=== PATIENT | male | born 1990 | race Hispanic/Latino ===

== ENCOUNTER 2018-08-04 12:04 | Inpatient (IN) | payer SELFPAY ==
[~2018-08-04] VITALS: Ht 172.7 cm; Wt 81.4 kg
[2018-08-04 12:38] LABS: BASOPHILS % (AUTO) 0.7 % (0.0-5.0); EOSINOPHILS % (AUTO) 1.3 % (0.0-8.0); HEMATOCRIT 47.5 % (42-54); MEAN CORPUSCULAR VOLUME 91.4 fL (79-99); MONOCYTES % (AUTO) 5.6 % (3.0-13.0); NEUTROPHILS % (AUTO) 72.4 % (40.0-77.0); PLATELET COUNT (AUTO) 194 K/uL (130-400); RED CELL DISTRIBUTION WIDTH 14.2 % (11.0-15.5); WHITE BLOOD COUNT (AUTO) 9.9 K/uL (4.8-10.8)
[2018-08-04] MEDS ORDERED: ONDANSETRON HCL 4 MG/2 ML VIAL ONE (12:38)
[2018-08-04] MEDS ORDERED: KETOROLAC TROMETHAMINE 15MG/ML ONE (12:38)
[2018-08-04] MEDS ORDERED: SODIUM CHLORIDE 0.9% 1000ML 1,000 ML IV ONE ×2 (12:38→15:59)
[2018-08-04 12:39] LABS: APPEARANCE,URINE Cloudy (CLEAR); BILIRUBIN,URINE Small (NEGATIVE); COLOR,URINE Orange (YELLOW); GLUCOSE, URINE (UA) >=1000 mg/dL (NEGATIVE); KETONES,URINE >=80 mg/dL (NEGATIVE); LEUKOCYTE ESTERASE ,URINE Small (NEGATIVE); NITRATE,URINE Negative (NEGATIVE); OCCULT BLOOD,URINE Trace (NEGATIVE); PROTEIN,URINE POS 2+ (NEGATIVE)
[2018-08-04 12:47] LABS: AMPHET/METH SCREEN,URINE NEGATIVE (NEGATIVE); BARBITURATE SCREEN, URINE NEGATIVE (NEGATIVE); BENZODIAZEPINES SCREEN,URINE NEGATIVE (NEGATIVE); CANNABINOID SCREEN,URINE NEGATIVE (NEGATIVE); COCAINE SCREEN,URINE NEGATIVE (NEGATIVE); OPIATE SCREEN,URINE NEGATIVE (NEGATIVE); PHENCYCLIDINE SCREEN,URINE NEGATIVE (NEGATIVE)
[2018-08-04 12:47] LABS: CREATININE 0.6 mg/dL (0.5-1.5); POTASSIUM 3.9 mmol/L (3.5-5.1)
[2018-08-04 12:50] LABS: BACTERIA,URINE Few /HPF (None Seen)
[2018-08-04 12:51] LABS: MUCUS,URINE Moderate LPF (None Seen)
[2018-08-04 12:55] LABS: ALBUMIN 3.5 g/dL (3.5-5.0); TOTAL PROTEIN, SERUM 8.2 g/dL (6.0-8.3)
[2018-08-04] MEDS ORDERED: IOHEXOL-350 75 ML VIAL IV ONE (14:12)
[2018-08-04] MEDS ORDERED: MORPHINE SULFATE 4 MG/1ML SYG ONE ×2 (14:17→20:20)
[2018-08-04] MEDS ORDERED: ACETAMINOPHEN 325 MG TAB PO PRN (15:30)
[2018-08-04] MEDS ORDERED: MORPHINE SULFATE 4 MG/1ML SYG IV PRN (15:30)
[2018-08-04] MEDS ORDERED: ONDANSETRON HCL 4 MG/2 ML VIAL IV PRN (15:30)
[2018-08-04] MEDS ORDERED: MORPHINE SULFATE 2 MG/ML 1ML SYG IV PRN (15:30)
[2018-08-04 16:28] LABS: CREATININE 0.5 mg/dL (0.5-1.5); POTASSIUM 3.5 mmol/L (3.5-5.1)
[2018-08-04 16:34] LABS: AMYLASE 31 U/L (25-115); CHOLESTEROL 194 mg/dL (<200); HDL CHOLESTEROL 33 mg/dL (29-71); LDL DIRECT 73 mg/dL (0-99); TRIGLYCERIDES 511 mg/dL (30-200)
[2018-08-04] MEDS ORDERED: FENOFIBRATE NANOCRYSTALLIZED 145 MG TAB PO ONE (17:00)
[2018-08-04] MEDS ORDERED: ENOXAPARIN SODIUM 40 MG/0.4 ML SYRINGE SQ ONE (18:06)
[2018-08-04 23:50] VITALS: BP 122/69
[2018-08-05] MEDS ORDERED: METF500S7 PO (00:01)
[2018-08-05] MEDS ORDERED: LISI10TA7 PO (00:01)
[2018-08-05] MEDS: SODIUM CHLORIDE 0.9% 1000ML 1,000 ML IV SCH ×3 (01:35→16:56)
[2018-08-05] MEDS: FAMOTIDINE/PF 20 MG/2 ML VIAL IV SCH ×3 (02:06→20:40)
[2018-08-05 04:18] VITALS: BP 111/67
[2018-08-05 04:58] LABS: HEMATOCRIT 36.1 % (42-54); MEAN CORPUSCULAR HGB CONC 35.3 g/dL (32.0-36.0); MEAN CORPUSCULAR VOLUME 90.7 fL (79-99); PLATELET COUNT (AUTO) 144 K/uL (130-400); RED BLOOD CELL COUNT(AUTO) 3.98 MIL/uL (4.50-6.20); RED CELL DISTRIBUTION WIDTH 14.2 % (11.0-15.5); WHITE BLOOD COUNT (AUTO) 7.3 K/uL (4.8-10.8)
[2018-08-05 05:15] LABS: CREATININE 0.4 mg/dL (0.5-1.5); POTASSIUM 3.4 mmol/L (3.5-5.1)
[2018-08-05 08:00] VITALS: BP 110/69
[2018-08-05] MEDS: FENOFIBRATE NANOCRYSTALLIZED 145 MG TAB PO SCH (09:02)
[2018-08-05] MEDS: ENOXAPARIN SODIUM 40 MG/0.4 ML SYRINGE SQ SCH (09:04)
[2018-08-05 11:00] VITALS: BP 140/87
[2018-08-05 16:00] VITALS: BP 129/80
[2018-08-05 19:37] VITALS: BP 115/65
[2018-08-05 23:22] VITALS: BP 115/65
[2018-08-06] MEDS: SODIUM CHLORIDE 0.9% 1000ML 1,000 ML IV SCH (00:07)
[2018-08-06 03:30] VITALS: BP 112/71
[2018-08-06 04:53] LABS: HEMATOCRIT 36.3 % (42-54); MEAN CORPUSCULAR VOLUME 91.7 fL (79-99); PLATELET COUNT (AUTO) 184 K/uL (130-400); RED BLOOD CELL COUNT(AUTO) 3.96 MIL/uL (4.50-6.20); RED CELL DISTRIBUTION WIDTH 13.7 % (11.0-15.5); WHITE BLOOD COUNT (AUTO) 6.5 K/uL (4.8-10.8)
[2018-08-06 05:10] LABS: CREATININE 0.5 mg/dL (0.5-1.5)
[2018-08-06] MEDS ORDERED: ATORVASTATIN CALCIUM 40 MG TABLET PO SCH (09:00)
[2018-08-06] MEDS: ENOXAPARIN SODIUM 40 MG/0.4 ML SYRINGE SQ SCH (09:00)
[2018-08-06] MEDS ORDERED: LEVOFLOXACIN 500 MG TABLET PO SCH (09:00)
[2018-08-06] MEDS: FENOFIBRATE NANOCRYSTALLIZED 145 MG TAB PO SCH (09:58)
[2018-08-06] MEDS: FAMOTIDINE/PF 20 MG/2 ML VIAL IV SCH (09:58)
[2018-08-06 11:00] VITALS: BP 122/77
[2018-08-06] MEDS ORDERED: LEVO500T2 PO (11:10)
== END 2018-08-06 13:30 | disposition home or self-care (01) | DRG 439 ==
LOC: EDH 12:04 → EDHIP 12:05 → 3CH 21:40
PROVIDERS: ADMIT Internal Medicine; ATTEND Internal Medicine
DX: K85.20 Alcohol induced acute pancreatitis without necrosis or infection (principal); E87.1 Hypo-osmolality and hyponatremia; N39.0 Urinary tract infection, site not specified; E78.1 Pure hyperglyceridemia; E87.6 Hypokalemia; K26.9 Duodenal ulcer, unspecified as acute or chronic, without hemorrhage or perforation
CPT/HCPCS: 36415; 71045; 74177; 76705; 80048; 80053; 80061; 80305; 81001; 82150; 82948; 83690; 84478; 84484; 85025; 85027; 86677; 93005; J1650; J1885; J2270; J2405; J3490; J7030; Q9967

== ENCOUNTER 2019-07-09 12:15 | Inpatient (IN) | payer OTHER ==
[~2019-07-09] VITALS: Ht 157.5 cm; Wt 79.4 kg
[~2019-07-09 12:15] MED LIST: LEVO500T2 PO; LISI10TA7 PO; METF500S7 PO
[2019-07-09] MEDS ORDERED: ONDANSETRON HCL 4 MG/2 ML VIAL ONE ×2 (12:37→18:15)
[2019-07-09] MEDS ORDERED: KETOROLAC TROMETHAMINE 30MG/ML ONE (12:38)
[2019-07-09] MEDS ORDERED: SODIUM CHLORIDE 0.9% 1000ML 1,000 ML IV ONE ×2 (12:38→16:18)
[2019-07-09 12:43] LABS: EOSINOPHILS % (AUTO) 3.9 % (0.0-8.0); LYMPHOCYTES % (AUTO) 22.6 % (21.0-51.0); MONOCYTES % (AUTO) 5.1 % (3.0-13.0); NEUTROPHILS % (AUTO) 67.4 % (40.0-77.0); PLATELET COUNT (AUTO) 206 K/uL (130-400); RED BLOOD CELL COUNT(AUTO) 5.03 MIL/uL (4.50-6.20); RED CELL DISTRIBUTION WIDTH 13.8 % (11.0-15.5); WHITE BLOOD COUNT (AUTO) 11.1 K/uL (4.8-10.8)
[2019-07-09 12:58] LABS: POTASSIUM 3.3 mmol/L (3.5-5.1)
[2019-07-09] MEDS ORDERED: MORPHINE SULFATE 4 MG/1ML SYG ONE (13:08)
[2019-07-09 13:25] LABS: HEMATOCRIT 40.5 % (42-54)
[2019-07-09 13:26] LABS: MEAN CORPUSCULAR HEMOGLOBIN 32.7 pg (27.0-33.0); MEAN CORPUSCULAR HGB CONC 34.7 g/dL (32.0-36.0); MEAN CORPUSCULAR VOLUME 94.3 fL (79-99)
[2019-07-09] MEDS ORDERED: IOHEXOL-350 75 ML VIAL IV ONE (13:39)
[2019-07-09 13:50] LABS: CREATININE 0.3 mg/dL (0.5-1.5)
[2019-07-09 13:52] LABS: ALBUMIN 3.7 g/dL (3.5-5.0); BILIRUBIN,TOTAL 1.3 mg/dL (0.2-1.0); TOTAL PROTEIN, SERUM 5.4 g/dL (6.0-8.3)
[2019-07-09 14:33] LABS: ABG OXYGEN SATURATION 87.8 % (95.0-99.0); BASE EXCESS,VENOUS BLOOD GAS -2.8 (-2.0-3.0); HCO3,VENOUS BLOOD GAS 23.2 (21.0-28.0); PCO2,VENOUS BLOOD GAS 45 (35-48); PH,VENOUS BLOOD GAS 7.332 (7.350-7.450)
[2019-07-09] MEDS ORDERED: INSULIN HUMULIN R 100 UNIT/ML 3ML ONE ×2 (15:21→20:35)
[2019-07-09] MEDS ORDERED: SODIUM CHLORIDE 0.9% 1000ML 2,000 ML IV ONE ×2 (15:22→19:58)
[2019-07-09 15:30] LABS: APPEARANCE,URINE Cloudy (CLEAR); BILIRUBIN,URINE Negative (NEGATIVE); COLOR,URINE Yellow (YELLOW); GLUCOSE, URINE (UA) >=1000 mg/dL (NEGATIVE); KETONES,URINE >=80 mg/dL (NEGATIVE); LEUKOCYTE ESTERASE ,URINE Negative (NEGATIVE); NITRATE,URINE Negative (NEGATIVE); OCCULT BLOOD,URINE Small (NEGATIVE); PROTEIN,URINE POS 2+ mg/dL (NEGATIVE); UROBILINOGEN,URINE 0.2 mg/dL (0.2-1.0)
[2019-07-09 15:36] LABS: ABG OXYGEN SATURATION 60.6 % (95.0-99.0); HCO3,VENOUS BLOOD GAS 18.8 (21.0-28.0); PCO2,VENOUS BLOOD GAS 39 (35-48); PH,VENOUS BLOOD GAS 7.302 (7.350-7.450)
[2019-07-09 15:44] LABS: BACTERIA,URINE Few /HPF (None Seen); MUCUS,URINE Few LPF (None Seen); SQUAMOUS EPITHELIAL CELL,UR Moderate /HPF (0-2)
[2019-07-09] MEDS: SODIUM CHLORIDE 0.9% 1000ML 1,000 ML IV SCH ×2 (16:11→21:14)
[2019-07-09] MEDS ORDERED: HYDRALAZINE HCL 20 MG/ML VIAL IV PRN (16:15)
[2019-07-09] MEDS ORDERED: CEFTRIAXONE SODIUM 1 GM IV SCH (16:15)
[2019-07-09] MEDS ORDERED: MORPHINE SULFATE 2 MG/ML 1ML SYG ONE ×2 (16:18→21:09)
[2019-07-09] MEDS ORDERED: FENOFIBRATE NANOCRYSTALLIZED 145 MG TAB PO SCH (17:30)
[2019-07-09] MEDS ORDERED: ATORVASTATIN CALCIUM 40 MG TABLET PO SCH (17:30)
[2019-07-09] MEDS: INSULIN HUMULIN R 100 UNIT/ML 3ML SQ SCH (18:00)
[2019-07-09] MEDS ORDERED: HYDROMORPHONE 1 MG/1 ML AMP ONE ×2 (18:15→23:03)
[2019-07-09] MEDS ORDERED: CEFTRIAXONE SODIUM 1 GM ONE (20:30)
[2019-07-09] MEDS ORDERED: FAMOTIDINE/PF 20 MG/2 ML VIAL IV ONE (20:31)
[2019-07-09] MEDS ORDERED: HYDRALAZINE HCL 20 MG/ML VIAL ONE (20:33)
[2019-07-09] MEDS: ATORVASTATIN CALCIUM 40 MG TABLET PO SCH (21:00)
[2019-07-09] MEDS: FAMOTIDINE/PF 20 MG/2 ML VIAL IV SCH (21:00)
[2019-07-09] MEDS ORDERED: SODIUM CHLORIDE 0.9% 50 ML IV ONE (23:04)
[2019-07-10] VITALS (10 sets, daily range): BP systolic 139–164; BP diastolic 79–102
[2019-07-10] MEDS: SODIUM CHLORIDE 0.9% 1000ML 1,000 ML IV SCH ×3 (02:14→12:14)
[2019-07-10] MEDS ORDERED: ACETAMINOPHEN 325 MG TAB ONE (03:23)
[2019-07-10] MEDS ORDERED: ONDANSETRON HCL 4 MG/2 ML VIAL ONE ×2 (03:30→11:04)
[2019-07-10] MEDS ORDERED: HYDROMORPHONE 1 MG/1 ML AMP ONE ×3 (03:31→13:24)
[2019-07-10 04:18] LABS: BASOPHILS % (AUTO) 0.8 % (0.0-5.0); EOSINOPHILS % (AUTO) 0.2 % (0.0-8.0); LYMPHOCYTES % (AUTO) 7.8 % (21.0-51.0); MEAN CORPUSCULAR HEMOGLOBIN 39.5 pg (27.0-33.0); MEAN CORPUSCULAR HGB CONC 41.5 g/dL (32.0-36.0); MEAN CORPUSCULAR VOLUME 95.2 fL (79-99); MONOCYTES % (AUTO) 5.1 % (3.0-13.0); NEUTROPHILS % (AUTO) 86.1 % (40.0-77.0); NUCLEATED RED BLOOD CELLS 0.1 % (0.0-0.19); PLATELET COUNT (AUTO) 145 K/uL (130-400); RED BLOOD CELL COUNT(AUTO) 4.62 MIL/uL (4.50-6.20); RED CELL DISTRIBUTION WIDTH 14.1 % (11.0-15.5)
[2019-07-10 04:38] LABS: POTASSIUM 3.3 mmol/L (3.5-5.1)
[2019-07-10] MEDS ORDERED: SODIUM CHLORIDE 0.9% 1000ML 1,000 ML IV ONE ×4 (04:50→11:09)
[2019-07-10] MEDS ORDERED: LIDOCAINE HCL 1% 20 ML VIAL ONE (05:36)
[2019-07-10] MEDS ORDERED: POTASSIUM CHLORIDE 20MEQ/100ML 100 ML IV ONE (05:36)
[2019-07-10] MEDS ORDERED: INSULIN HUMULIN R 100 UNIT/ML 3ML ONE ×2 (05:37→10:25)
[2019-07-10] MEDS ORDERED: MORPHINE SULFATE 2 MG/ML 1ML SYG ONE (05:43)
[2019-07-10] MEDS: INSULIN HUMULIN R 100 UNIT/ML 3ML SQ SCH ×3 (06:00→12:00)
[2019-07-10 06:15] LABS: CREATININE 0.4 mg/dL (0.5-1.5)
[2019-07-10] MEDS ORDERED: ACETAMINOPHEN 650 MG SUPPOSITORY RC ONE (08:42)
[2019-07-10] MEDS ORDERED: MEROPENEM 500 MG VIAL ONE (08:42)
[2019-07-10] MEDS ORDERED: SODIUM CHLORIDE 0.9% 100 ML IV ONE ×3 (08:43→13:24)
[2019-07-10] MEDS: ENOXAPARIN SODIUM 30 MG/0.3 ML SQ SCH (09:00)
[2019-07-10] MEDS: FAMOTIDINE/PF 20 MG/2 ML VIAL IV SCH ×2 (09:00→20:06)
[2019-07-10] MEDS: FENOFIBRATE NANOCRYSTALLIZED 145 MG TAB PO SCH (09:00)
[2019-07-10] MEDS ORDERED: DEXTROSE 5 % AND 0.9 % NACL 1,000 ML IV ONE ×2 (10:27→15:25)
[2019-07-10] MEDS ORDERED: MAGNESIUM 2GM PREMIX 50ML 50 ML IV ONE (14:28)
[2019-07-10] MEDS ORDERED: METOPROLOL TARTRATE 1 MG/ML 5ML VIAL IV ONE (14:51)
[2019-07-10] MEDS ORDERED: METOPROLOL TARTRATE 1 MG/ML 5ML VIAL IV PRN (15:15)
[2019-07-10] MEDS ORDERED: LACTATED RINGERS 1000ML 1,000 ML IV ONE ×2 (17:27→23:02)
[2019-07-10] MEDS ORDERED: DEXTROSE 5 % AND 0.9 % NACL 1,000 ML IV SCH (17:45)
[2019-07-10] MEDS: LACTATED RINGERS 1000ML 1,000 ML IV SCH (17:46)
[2019-07-10] MEDS ORDERED: PRAV10TA39 PO (17:53)
[2019-07-10] MEDS: MEROPENEM 500 MG VIAL IVP SCH (18:07)
[2019-07-10 18:31] LABS: BASOPHILS % (AUTO) 0.7 % (0.0-5.0); EOSINOPHILS % (AUTO) 0.1 % (0.0-8.0); HEMATOCRIT 42.6 % (42-54); LYMPHOCYTES % (AUTO) 9.6 % (21.0-51.0); MEAN CORPUSCULAR HGB CONC 36.1 g/dL (32.0-36.0); MONOCYTES % (AUTO) 4.5 % (3.0-13.0); NEUTROPHILS % (AUTO) 85.1 % (40.0-77.0); NUCLEATED RED BLOOD CELLS 0.1 % (0.0-0.19); PLATELET COUNT (AUTO) 122 K/uL (130-400); RED BLOOD CELL COUNT(AUTO) 4.53 MIL/uL (4.50-6.20); RED CELL DISTRIBUTION WIDTH 14.2 % (11.0-15.5); WHITE BLOOD COUNT (AUTO) 11.1 K/uL (4.8-10.8)
[2019-07-10 18:43] LABS: CREATININE 0.6 mg/dL (0.5-1.5); POTASSIUM 3.3 mmol/L (3.5-5.1)
[2019-07-10] MEDS ORDERED: DEXTROSE 50%-WATER 50 ML DISP.SYRIN IV PRN (18:45)
[2019-07-10] MEDS ORDERED: GLUCAGON 1MG KIT 1 MG ML IM PRN (18:45)
[2019-07-10 18:57] LABS: MAGNESIUM 1.5 mg/dL (1.80-2.40); PHOSPHORUS 1.1 mg/dL (2.5-4.9); THYROID STIMULATING HORMONE 0.21 uIU/mL (0.36-3.74)
[2019-07-10] MEDS: POTASSIUM CHLORIDE 20MEQ/100ML 100 ML IV PRN ×2 (19:43→21:08)
[2019-07-10] MEDS: LIDOCAINE HCL-MPF 1% 2ML VIAL IV PRN ×3 (19:47→21:10)
[2019-07-10] MEDS: DEXTROSE 5 % AND 0.9 % NACL 1,000 ML IV SCH (20:00)
--- NOTE | 2019-07-10 20:00 | NUR ---
Received call from ,notified of recent lab results with Mag pending result. and blood sugar result.He ordered to keep blood sugar above 120 and check blood sugar every 30 minutes X3 and then q1 hr.Keep pt on D5NS @200 ml/hr. check labs in am .Notified about pt HR in the 150-140's bpm he said its okay for now.No new order received.
[2019-07-10] MEDS: ATORVASTATIN CALCIUM 40 MG TABLET PO SCH (20:07)
[2019-07-10] MEDS: MAGNESIUM 2GM PREMIX 50ML 50 ML IV PRN (20:54)
--- NOTE | 2019-07-10 21:00 | NUR ---
Pt. is drowsy but arousable, he c/o nausea and vomited once prn Zofran IV was given as per BERONICA Barragan.Pt. remained ST 140's with occasionbal PVC on the monitor noted.Potassium and Magnesium ongoing coverage.Will continue to monitor pt.
[2019-07-10] MEDS: ONDANSETRON HCL 4 MG/2 ML VIAL IVP PRN (21:11)
[2019-07-10] MEDS: INSULIN REGULAR, HUMAN 3ML 100 UNIT in SODIUM CHLORIDE 0.9% 99 ML IV PRN ×2 (22:25)
[2019-07-10] MEDS ORDERED: LACTATED RINGERS 1000ML IV ONE (23:15)
--- NOTE | 2019-07-10 23:30 | NUR ---
Received call from ,updated with pt condition and V/S and blood sugar result,received order to increase D5NS to 250 ml/hr and give LR 1 liter to infuse for 2 hrs.Will carry out order and continue to monitor pt.
[2019-07-11] VITALS (35 sets, daily range): BP systolic 122–153; BP diastolic 59–93
[2019-07-11] MEDS: DEXTROSE 5 % AND 0.9 % NACL 1,000 ML IV SCH ×8 (00:02→22:36)
[2019-07-11] MEDS: MEROPENEM 500 MG VIAL IVP SCH ×3 (01:50→18:20)
[2019-07-11] MEDS: ONDANSETRON HCL 4 MG/2 ML VIAL IVP PRN ×3 (04:48→16:16)
[2019-07-11] MEDS: HYDROMORPHONE 1 MG/1 ML AMP IVP PRN ×2 (04:52→20:25)
--- NOTE | 2019-07-11 05:20 | NUR ---
Received call from ,updated with pt V/S ,pt alert and oriented,c/o abdominal pain and was nauseated was given prn dilaudid and Zofran.Pt had episode of fever 101 and this morning pt temperature is 99.4.Received order to give LR bolus to infuse X 2 hours.Notified that Kphosphate pending to be given because there is no available at this time.
[2019-07-11] MEDS ORDERED: LACTATED RINGERS 1000ML IV ONE (05:30)
--- NOTE | 2019-07-11 06:00 | NUR ---
Placed call to pharmacy X2 regarding Kphosphate.
[2019-07-11 07:11] LABS: BASOPHILS % (AUTO) 0.9 % (0.0-5.0); EOSINOPHILS % (AUTO) 0.1 % (0.0-8.0); HEMATOCRIT 38.2 % (42-54); LYMPHOCYTES % (AUTO) 13.7 % (21.0-51.0); MEAN CORPUSCULAR HEMOGLOBIN 33.4 pg (27.0-33.0); MEAN CORPUSCULAR VOLUME 92.9 fL (79-99); MONOCYTES % (AUTO) 4.2 % (3.0-13.0); NEUTROPHILS % (AUTO) 81.1 % (40.0-77.0); PLATELET COUNT (AUTO) 101 K/uL (130-400); RED BLOOD CELL COUNT(AUTO) 4.11 MIL/uL (4.50-6.20); WHITE BLOOD COUNT (AUTO) 9.6 K/uL (4.8-10.8)
--- NOTE | 2019-07-11 07:12 | NUR ---
Bedside report given to incoming NOD uysing SBAR all questions answered.Am labs pending to be drawn.
[2019-07-11 07:27] LABS: ALBUMIN 1.8 g/dL (3.5-5.0); CREATININE 0.5 mg/dL (0.5-1.5); MAGNESIUM 1.9 mg/dL (1.80-2.40); PHOSPHORUS 0.9 mg/dL (2.5-4.9); TOTAL PROTEIN, SERUM 5.4 g/dL (6.0-8.3)
[2019-07-11 07:42] LABS: PLATELET MORPHOLOGY COMMENT SLIGHTLY DECREASED
[2019-07-11] MEDS: POTASSIUM PHOS 15 mMOL+NS250ML 250 ML IV PRN (07:54)
[2019-07-11] MEDS: FAMOTIDINE/PF 20 MG/2 ML VIAL IV SCH ×2 (08:04→20:24)
[2019-07-11] MEDS: FENOFIBRATE NANOCRYSTALLIZED 145 MG TAB PO SCH (08:04)
[2019-07-11] MEDS: ENOXAPARIN SODIUM 30 MG/0.3 ML SQ SCH (08:04)
[2019-07-11] MEDS: POTASSIUM CHLORIDE 20MEQ/100ML 100 ML IV PRN ×7 (08:24→22:35)
[2019-07-11] MEDS: LIDOCAINE HCL-MPF 1% 2ML VIAL IV PRN (09:13)
[2019-07-11] MEDS: INSULIN REGULAR, HUMAN 3ML 100 UNIT in SODIUM CHLORIDE 0.9% 99 ML IV PRN ×2 (11:36)
[2019-07-11] MEDS: MORPHINE SULFATE 2 MG/ML 1ML SYG IV PRN (12:18)
[2019-07-11 15:05] LABS: CREATININE 0.6 mg/dL (0.5-1.5); MAGNESIUM 1.9 mg/dL (1.80-2.40); PHOSPHORUS 3.6 mg/dL (2.5-4.9); POTASSIUM 3.2 mmol/L (3.5-5.1)
[2019-07-11] MEDS: HYDROMORPHONE HCL 0.5 MG/0.5 ML ML IVP PRN (16:16)
--- NOTE | 2019-07-11 16:52 | NUR ---
cm note met with patient and states resides athome with mother, is independent with ambulation and adls . sees dr isaias frazier as op. dc plan is back to same setting at ma. provided pt with list of clinics in the area if needed for followup and Rx assist coupons. [facility]. Addendum: 07/11/19 at 1655 by THIERRY BARRIENTOS CM Amended: Links added.
[2019-07-11] MEDS: ATORVASTATIN CALCIUM 40 MG TABLET PO SCH (20:24)
[2019-07-12] VITALS (27 sets, daily range): BP systolic 123–151; BP diastolic 64–101
[2019-07-12] MEDS: MEROPENEM 500 MG VIAL IVP SCH ×3 (01:16→17:20)
[2019-07-12] MEDS ORDERED: INSULIN HUMULIN R 100 UNIT/ML 3ML ONE (02:44)
[2019-07-12] MEDS: DEXTROSE 5 % AND 0.9 % NACL 1,000 ML IV SCH ×6 (02:48→23:00)
[2019-07-12] MEDS: HYDROMORPHONE 1 MG/1 ML AMP IVP PRN (05:35)
[2019-07-12 05:50] LABS: BASOPHILS % (AUTO) 0.8 % (0.0-5.0); EOSINOPHILS % (AUTO) 0.6 % (0.0-8.0); HEMATOCRIT 36.7 % (42-54); LYMPHOCYTES % (AUTO) 17.8 % (21.0-51.0); MEAN CORPUSCULAR HEMOGLOBIN 33.7 pg (27.0-33.0); MEAN CORPUSCULAR HGB CONC 35.6 g/dL (32.0-36.0); MEAN CORPUSCULAR VOLUME 94.8 fL (79-99); MONOCYTES % (AUTO) 4.4 % (3.0-13.0); NEUTROPHILS % (AUTO) 76.4 % (40.0-77.0); PLATELET COUNT (AUTO) 95 K/uL (130-400); RED BLOOD CELL COUNT(AUTO) 3.87 MIL/uL (4.50-6.20); RED CELL DISTRIBUTION WIDTH 14.4 % (11.0-15.5)
[2019-07-12 06:10] LABS: ALBUMIN 1.7 g/dL (3.5-5.0); BILIRUBIN,DIRECT 0.1 mg/dL (0.0-0.3); BILIRUBIN,TOTAL 0.8 mg/dL (0.2-1.0); CREATININE 0.4 mg/dL (0.5-1.5); MAGNESIUM 1.8 mg/dL (1.80-2.40); PHOSPHORUS 1.5 mg/dL (2.5-4.9); POTASSIUM 3.1 mmol/L (3.5-5.1); TOTAL PROTEIN, SERUM 5.7 g/dL (6.0-8.3)
[2019-07-12] MEDS: POTASSIUM CHLORIDE 20MEQ/100ML 100 ML IV PRN ×4 (06:39→13:22)
[2019-07-12] MEDS: POTASSIUM PHOS 15 mMOL+NS250ML 250 ML IV PRN (06:50)
[2019-07-12] MEDS ORDERED: REGADENOSON 0.4 MG/5 ML PF SYG IVP SCH (08:15)
[2019-07-12] MEDS: FENOFIBRATE NANOCRYSTALLIZED 145 MG TAB PO SCH (09:00)
[2019-07-12] MEDS: FAMOTIDINE/PF 20 MG/2 ML VIAL IV SCH ×2 (09:00→21:20)
[2019-07-12] MEDS: ENOXAPARIN SODIUM 30 MG/0.3 ML SQ SCH (09:03)
[2019-07-12] MEDS: INSULIN REGULAR, HUMAN 3ML 100 UNIT in SODIUM CHLORIDE 0.9% 99 ML IV PRN ×4 (10:35→22:56)
[2019-07-12] MEDS: ONDANSETRON HCL 4 MG/2 ML VIAL IVP PRN (11:28)
[2019-07-12] MEDS: HYDROMORPHONE HCL 0.5 MG/0.5 ML ML IVP PRN ×2 (12:15→16:50)
[2019-07-12] MEDS: SODIUM CHLORIDE 23.4% 30ML VL 154 MEQ in DEXTROSE 10%-WATER 961.5 ML IV PRN ×2 (12:19→22:56)
[2019-07-12 12:33] LABS: CREATININE 0.5 mg/dL (0.5-1.5); MAGNESIUM 1.7 mg/dL (1.80-2.40)
[2019-07-12 12:47] LABS: POTASSIUM 2.9 mmol/L (3.5-5.1)
[2019-07-12] MEDS: MAGNESIUM 2GM PREMIX 50ML 50 ML IV PRN (13:27)
[2019-07-12 14:18] LABS: INR 0.96 (0.85-1.15); PARTIAL THROMBOPLASTIN TIME 35.7 SEC (26.3-35.5); PROTHROMBIN TIME 10.1 SEC (9.6-11.6)
[2019-07-12] MEDS: MORPHINE SULFATE 2 MG/ML 1ML SYG IV PRN ×3 (14:42→21:20)
[2019-07-12 18:20] LABS: CREATININE 0.4 mg/dL (0.5-1.5); PHOSPHORUS 4.4 mg/dL (2.5-4.9); POTASSIUM 3.8 mmol/L (3.5-5.1)
--- NOTE | 2019-07-12 19:30 | NUR ---
ASSESSMENT PT RESTING IN BED, FAMILY AT BEDSIDE. SEE E.BRENNA FOR ANALGESICS GIVEN. CALLBELL REVIEWED AND WITHIN REACH, MONITOR PARAMETERS REVIEWED AND ADJUSTED. WHITE BOARD UP-DATED. ASSESSMENT COMPLETED, SEE FLOW SHEET.
[2019-07-12] MEDS: ATORVASTATIN CALCIUM 40 MG TABLET PO SCH (21:21)
--- NOTE | 2019-07-12 23:00 | NUR ---
ASSESSMENT PT RESTING IN BED, FAMILY AT BEDSIDE. SEE E.BRENNA FOR ANALGESICS GIVEN. CALLBELL WITHIN REACH. WHITE BOARD UP-DATED. ASSESSMENT COMPLETED, SEE FLOW SHEET.
[2019-07-13] VITALS (24 sets, daily range): BP systolic 128–150; BP diastolic 76–96
[2019-07-13 00:56] LABS: CREATININE 0.4 mg/dL (0.5-1.5); MAGNESIUM 1.7 mg/dL (1.80-2.40); POTASSIUM 3.3 mmol/L (3.5-5.1)
[2019-07-13] MEDS: ONDANSETRON HCL 4 MG/2 ML VIAL IVP PRN (01:17)
[2019-07-13] MEDS: MEROPENEM 500 MG VIAL IVP SCH ×3 (01:18→18:33)
[2019-07-13] MEDS: DEXTROSE 5 % AND 0.9 % NACL 1,000 ML IV SCH ×5 (01:28→18:34)
[2019-07-13] MEDS: MAGNESIUM 2GM PREMIX 50ML 50 ML IV PRN ×2 (01:28→16:31)
[2019-07-13] MEDS: POTASSIUM CHLORIDE 20MEQ/100ML 100 ML IV PRN ×5 (01:29→11:30)
[2019-07-13] MEDS: HYDROMORPHONE 1 MG/1 ML AMP IVP PRN ×5 (02:09→22:06)
[2019-07-13 06:26] LABS: BASOPHILS % (AUTO) 0.5 % (0.0-5.0); EOSINOPHILS % (AUTO) 2.9 % (0.0-8.0); HEMATOCRIT 37.9 % (42-54); LYMPHOCYTES % (AUTO) 19.7 % (21.0-51.0); MEAN CORPUSCULAR HEMOGLOBIN 32.6 pg (27.0-33.0); MEAN CORPUSCULAR HGB CONC 34.4 g/dL (32.0-36.0); MEAN CORPUSCULAR VOLUME 94.7 fL (79-99); MONOCYTES % (AUTO) 9.2 % (3.0-13.0); NEUTROPHILS % (AUTO) 67.7 % (40.0-77.0); NUCLEATED RED BLOOD CELLS 0.1 % (0.0-0.19); PLATELET COUNT (AUTO) 139 K/uL (130-400); RED CELL DISTRIBUTION WIDTH 14.5 % (11.0-15.5)
[2019-07-13 06:46] LABS: CREATININE 0.5 mg/dL (0.5-1.5); MAGNESIUM 2.1 mg/dL (1.80-2.40); POTASSIUM 3.7 mmol/L (3.5-5.1)
[2019-07-13] MEDS: FENOFIBRATE NANOCRYSTALLIZED 145 MG TAB PO SCH (08:10)
[2019-07-13] MEDS: FAMOTIDINE/PF 20 MG/2 ML VIAL IV SCH ×2 (08:10→20:48)
[2019-07-13] MEDS: ENOXAPARIN SODIUM 30 MG/0.3 ML SQ SCH (08:12)
[2019-07-13 12:34] LABS: CREATININE 0.4 mg/dL (0.5-1.5); MAGNESIUM 1.9 mg/dL (1.80-2.40)
[2019-07-13 18:58] LABS: CREATININE 0.4 mg/dL (0.5-1.5); MAGNESIUM 2.1 mg/dL (1.80-2.40); POTASSIUM 3.8 mmol/L (3.5-5.1)
--- NOTE | 2019-07-13 19:30 | NUR ---
ASSESSMENT PT RESTING IN BED, FAMILY AT BEDSIDE. CALLBELL REVIEWED AND WITHIN REACH, MONITOR PARAMETERS REVIEWED AND ADJUSTED. WHITE BOARD UP-DATED. ASSESSMENT COMPLETED, SEE FLOW SHEET.
[2019-07-13] MEDS: ATORVASTATIN CALCIUM 40 MG TABLET PO SCH (20:49)
[2019-07-14] VITALS (23 sets, daily range): BP systolic 118–149; BP diastolic 64–97
[2019-07-14 00:41] LABS: CREATININE 0.4 mg/dL (0.5-1.5); MAGNESIUM 1.8 mg/dL (1.80-2.40); POTASSIUM 3.4 mmol/L (3.5-5.1)
[2019-07-14] MEDS: POTASSIUM CHLORIDE 20MEQ/100ML 100 ML IV PRN ×3 (01:38→03:58)
[2019-07-14] MEDS: DEXTROSE 5 % AND 0.9 % NACL 1,000 ML IV SCH ×3 (01:39→10:39)
[2019-07-14] MEDS: MEROPENEM 500 MG VIAL IVP SCH ×3 (01:39→17:44)
[2019-07-14] MEDS: MAGNESIUM 2GM PREMIX 50ML 50 ML IV PRN (01:39)
[2019-07-14] MEDS: SODIUM CHLORIDE 23.4% 30ML VL 154 MEQ in DEXTROSE 10%-WATER 961.5 ML IV PRN (01:39)
[2019-07-14] MEDS: INSULIN REGULAR, HUMAN 3ML 100 UNIT in SODIUM CHLORIDE 0.9% 99 ML IV PRN ×2 (01:41)
[2019-07-14] MEDS: HYDROMORPHONE 1 MG/1 ML AMP IVP PRN ×4 (03:00→15:19)
--- NOTE | 2019-07-14 03:08 | NUR ---
ASSESSMENT PT RESTING IN BED, FAMILY AT BEDSIDE. CALLBELL WITHIN REACH. WHITE BOARD UP-DATED. ASSESSMENT COMPLETED, SEE FLOW SHEET.
[2019-07-14 06:43] LABS: CREATININE 0.5 mg/dL (0.5-1.5); MAGNESIUM 2.1 mg/dL (1.80-2.40)
[2019-07-14] MEDS: FENOFIBRATE NANOCRYSTALLIZED 145 MG TAB PO SCH (07:55)
[2019-07-14] MEDS: ENOXAPARIN SODIUM 30 MG/0.3 ML SQ SCH (07:55)
[2019-07-14] MEDS: FAMOTIDINE/PF 20 MG/2 ML VIAL IV SCH ×2 (07:55→21:24)
--- NOTE | 2019-07-14 11:20 | NUR ---
DR BRONSON AT BEDSIDE, NEW ORDERS GIVEN, TO DISCONTINUE ALL IVF, INCLUDING INSULIN DRIP
[2019-07-14] MEDS ORDERED: INSULIN GLARGINE 100 UNITS/ML 10 ML VIAL SQ SCH (11:30)
[2019-07-14] MEDS: INSULIN HUMULIN R 100 UNIT/ML 3ML SQ SCH ×3 (14:00→21:27)
--- NOTE | 2019-07-14 14:10 | NUR ---
ADMINISTERED 2 MG OF CATHFLOW ACTIVASE TO BLUE PORT PICC, IT WAS NOTED WITH RESISTANCE, NO BLOOD RETURN NOTED
[2019-07-14] MEDS: MORPHINE SULFATE 2 MG/ML 1ML SYG IV PRN ×2 (14:17→18:39)
[2019-07-14] MEDS ORDERED: ALTEPLASE 2 MG/VIAL IV SCH (14:30)
--- NOTE | 2019-07-14 15:00 | NUR ---
PROVIDED SITE CARE TO PICC LINE, UNDER STERILE TECHNIQUE.
--- NOTE | 2019-07-14 16:00 | NUR ---
ASPIRATED 2.2 ML OF BLOOD FROM BLUE PORT AND DISCARDED, PICC LINE, NO RESISTANCE NOTED, NOTED TO BE PATENT AT THIS TIME, AFTER CATHFLOW ACTIVASE GIVEN.
[2019-07-14] MEDS ORDERED: HYDROMORPHONE 1 MG/1 ML AMP IVP PRN (20:45)
[2019-07-14] MEDS: ATORVASTATIN CALCIUM 40 MG TABLET PO SCH (21:00)
[2019-07-14] MEDS: HYDROMORPHONE HCL 0.5 MG/0.5 ML ML IVP PRN (21:25)
[2019-07-15] VITALS (15 sets, daily range): BP systolic 107–137; BP diastolic 58–90
[2019-07-15] MEDS: INSULIN HUMULIN R 100 UNIT/ML 3ML SQ SCH ×6 (02:00→22:24)
[2019-07-15] MEDS: MEROPENEM 500 MG VIAL IVP SCH ×3 (03:08→18:40)
[2019-07-15] MEDS: HYDROMORPHONE HCL 0.5 MG/0.5 ML ML IVP PRN ×2 (03:52→18:55)
[2019-07-15 03:58] LABS: HEMATOCRIT 41.4 % (42-54); MEAN CORPUSCULAR HEMOGLOBIN 33.1 pg (27.0-33.0); MEAN CORPUSCULAR VOLUME 94.6 fL (79-99); NUCLEATED RED BLOOD CELLS 0.1 % (0.0-0.19); PLATELET COUNT (AUTO) 154 K/uL (130-400); RED BLOOD CELL COUNT(AUTO) 4.38 MIL/uL (4.50-6.20); RED CELL DISTRIBUTION WIDTH 13.9 % (11.0-15.5); WHITE BLOOD COUNT (AUTO) 6.6 K/uL (4.8-10.8)
[2019-07-15 04:12] LABS: CREATININE 0.5 mg/dL (0.5-1.5); MAGNESIUM 1.7 mg/dL (1.80-2.40); PHOSPHORUS 5.9 mg/dL (2.5-4.9); POTASSIUM 4.4 mmol/L (3.5-5.1)
[2019-07-15] MEDS: MAGNESIUM 2GM PREMIX 50ML 50 ML IV PRN (06:07)
[2019-07-15] MEDS: INSULIN GLARGINE 100 UNITS/ML 10 ML VIAL SQ SCH (07:24)
[2019-07-15] MEDS: FENOFIBRATE NANOCRYSTALLIZED 145 MG TAB PO SCH (08:06)
[2019-07-15] MEDS: ENOXAPARIN SODIUM 30 MG/0.3 ML SQ SCH (08:07)
[2019-07-15] MEDS: FAMOTIDINE/PF 20 MG/2 ML VIAL IV SCH ×2 (08:07→22:19)
[2019-07-15] MEDS: ONDANSETRON HCL 4 MG/2 ML VIAL IVP PRN (08:51)
[2019-07-15] MEDS: SODIUM CHLORIDE 0.9% 1000ML 1,000 ML IV SCH (11:11)
--- NOTE | 2019-07-15 13:34 | NUR ---
RD NOTIFICATION DX: DKA, ELEVATED LIPID PANEL. DIET: NPO X 7 DAYS. LBM: 07/13. PO INTAKE 0% FOR 7 DAYS NOW. PT STATED HE IS HUNGRY AND NEEDS FOOD. RD STATED WE WILL ADVANCE DIET SLOWLY STARTING WITH CLEAR LIQUIDS. RD PROVIDED DM AND HEART HEALTHY MNT. PT ASKED QUESTIONS, RD ANSWERED AND PT VERBALIZED UNDERSTANDING. MATERIALS PROVIDED. RECOMMENDATIONS/ INTERVENTIONS: ADVANCE DIET TOLERATED OFFER ENSURE CLEAR TID RD PROVIDED DIET AND NUTRITION EDUCATION, MATERIALS PROVIDED RD WILL FOLLOW UP NEEDED Addendum: 07/15/19 at [address] Amended: Links added.
--- NOTE | 2019-07-15 13:37 | NUR ---
DIET EDUCATION RD PROVIDED DIABETIC AND HEART HEALTHY MEDICAL NUTRITION THERAPY. MATERIALS PROVIDED. Addendum: 07/15/19 at [address] Amended: Links added.
[2019-07-15] MEDS: METOPROLOL TARTRATE 1 MG/ML 5ML VIAL IV SCH ×2 (14:28→18:45)
--- NOTE | 2019-07-15 14:40 | NUR ---
REPORT GIVEN TO UMA GOODSON. TRANSFERRED TO 3RD FLOOR, ROOM 308, VIA BED
--- NOTE | 2019-07-15 15:00 | NUR ---
RECIEVED REPORT FROM EMANUEL AT 1435, PATIENT ALERT AND ORIENTATED X3 ON VIA NC INFUSING AT 2 LITERS , DENIES PAIN AT THIS TIME BLOOD SUGAR EVERY 4 HOURS , LUNGS CLEAR , B/P 127/67 P 98 R 20 TRANSFERS TO BED WILL CONTINUE TO MONITOR
[2019-07-15] MEDS: ATORVASTATIN CALCIUM 40 MG TABLET PO SCH (22:19)
[2019-07-16] VITALS: BP 120/76
[2019-07-16] MEDS: MEROPENEM 500 MG VIAL IVP SCH ×3 (01:25→17:41)
[2019-07-16] MEDS: INSULIN HUMULIN R 100 UNIT/ML 3ML SQ SCH ×6 (02:00→21:21)
[2019-07-16] MEDS: METOPROLOL TARTRATE 1 MG/ML 5ML VIAL IV SCH (02:27)
[2019-07-16 04:00] VITALS: BP 116/81
[2019-07-16 05:44] LABS: HEMATOCRIT 40.1 % (42-54); MEAN CORPUSCULAR HEMOGLOBIN 32.7 pg (27.0-33.0); MEAN CORPUSCULAR HGB CONC 34.8 g/dL (32.0-36.0); MEAN CORPUSCULAR VOLUME 94.2 fL (79-99); NUCLEATED RED BLOOD CELLS 0.1 % (0.0-0.19); PLATELET COUNT (AUTO) 173 K/uL (130-400); RED BLOOD CELL COUNT(AUTO) 4.26 MIL/uL (4.50-6.20); RED CELL DISTRIBUTION WIDTH 13.5 % (11.0-15.5)
[2019-07-16 06:00] LABS: CREATININE 0.4 mg/dL (0.5-1.5); CRP QUANTITATIVE 123.3 mg/L (0.00-9.0); MAGNESIUM 1.8 mg/dL (1.80-2.40); PHOSPHORUS 3.7 mg/dL (2.5-4.9)
[2019-07-16 06:09] LABS: B-TYPE NATRIURETIC PEPTIDE 16 pg/mL (0-100)
[2019-07-16] MEDS: SODIUM CHLORIDE 0.9% 1000ML 1,000 ML IV SCH (06:45)
[2019-07-16 06:48] LABS: ERYTHROCYTE SEDIMENTATION RATE 101 MM/HR (0-15)
[2019-07-16] MEDS: INSULIN GLARGINE 100 UNITS/ML 10 ML VIAL SQ SCH (07:51)
[2019-07-16 08:00] VITALS: BP 128/79
[2019-07-16] MEDS ORDERED: ACETAMINOPHEN-CODEINE 300/30MG TAB PO PRN (08:45)
[2019-07-16] MEDS: FAMOTIDINE/PF 20 MG/2 ML VIAL IV SCH ×2 (10:24→21:22)
[2019-07-16] MEDS: FENOFIBRATE NANOCRYSTALLIZED 145 MG TAB PO SCH (10:25)
[2019-07-16] MEDS: ENOXAPARIN SODIUM 30 MG/0.3 ML SQ SCH (10:26)
[2019-07-16 12:00] VITALS: BP 123/84
[2019-07-16] MEDS: MORPHINE SULFATE 2 MG/ML 1ML SYG IVP PRN ×3 (12:59→22:45)
[2019-07-16] MEDS: MAGNESIUM 2GM PREMIX 50ML 50 ML IV PRN (12:59)
[2019-07-16 16:00] VITALS: BP 129/78
[2019-07-16 20:00] VITALS: BP 125/74
[2019-07-16] MEDS: METOPROLOL TARTRATE 25 MG TAB PO SCH (21:23)
[2019-07-16] MEDS: ATORVASTATIN CALCIUM 40 MG TABLET PO SCH (21:23)
[2019-07-17] VITALS: BP 114/72
[2019-07-17] MEDS: INSULIN HUMULIN R 100 UNIT/ML 3ML SQ SCH ×6 (02:00→21:59)
[2019-07-17] MEDS: MEROPENEM 500 MG VIAL IVP SCH ×2 (02:58→09:51)
[2019-07-17 04:00] VITALS: BP 110/67
[2019-07-17 05:57] LABS: HEMATOCRIT 41.5 % (42-54); MEAN CORPUSCULAR HEMOGLOBIN 32.5 pg (27.0-33.0); MEAN CORPUSCULAR HGB CONC 34.7 g/dL (32.0-36.0); MEAN CORPUSCULAR VOLUME 93.7 fL (79-99); PLATELET COUNT (AUTO) 226 K/uL (130-400); RED BLOOD CELL COUNT(AUTO) 4.43 MIL/uL (4.50-6.20); RED CELL DISTRIBUTION WIDTH 13.8 % (11.0-15.5); WHITE BLOOD COUNT (AUTO) 5.9 K/uL (4.8-10.8)
[2019-07-17 06:16] LABS: CREATININE 0.5 mg/dL (0.5-1.5)
[2019-07-17] MEDS: INSULIN GLARGINE 100 UNITS/ML 10 ML VIAL SQ SCH (06:23)
[2019-07-17] MEDS: SODIUM CHLORIDE 0.9% 1000ML 1,000 ML IV SCH (06:45)
[2019-07-17 08:00] VITALS: BP 120/71
[2019-07-17] MEDS: METOPROLOL TARTRATE 25 MG TAB PO SCH ×2 (09:02→21:25)
[2019-07-17] MEDS: FENOFIBRATE NANOCRYSTALLIZED 145 MG TAB PO SCH (09:02)
[2019-07-17] MEDS: FAMOTIDINE/PF 20 MG/2 ML VIAL IV SCH ×2 (09:03→21:25)
[2019-07-17] MEDS: ENOXAPARIN SODIUM 30 MG/0.3 ML SQ SCH (09:08)
[2019-07-17] MEDS ORDERED: SODIUM CHLORIDE 0.9% 50 ML IV ONE (09:27)
[2019-07-17] MEDS: MORPHINE SULFATE 2 MG/ML 1ML SYG IVP PRN ×2 (09:51→20:14)
--- NOTE | 2019-07-17 10:42 | NUR ---
Per Dr. Nelson, antibiotic to be discontinued.
[2019-07-17 12:00] VITALS: BP 124/70
[2019-07-17 16:00] VITALS: BP 130/82
[2019-07-17 20:00] VITALS: BP 114/72
[2019-07-17] MEDS: ATORVASTATIN CALCIUM 40 MG TABLET PO SCH (21:25)
[2019-07-18] VITALS: BP 117/70
[2019-07-18] MEDS: SODIUM CHLORIDE 0.9% 1000ML 1,000 ML IV SCH ×2 (00:11→08:53)
[2019-07-18] MEDS: INSULIN HUMULIN R 100 UNIT/ML 3ML SQ SCH ×3 (01:51→12:21)
[2019-07-18 04:00] VITALS: BP 114/66
[2019-07-18 05:07] LABS: BASOPHILS % (AUTO) 1.4 % (0.0-5.0); HEMATOCRIT 43.3 % (42-54); LYMPHOCYTES % (AUTO) 30.1 % (21.0-51.0); MEAN CORPUSCULAR HGB CONC 34.3 g/dL (32.0-36.0); MEAN CORPUSCULAR VOLUME 93.4 fL (79-99); MONOCYTES % (AUTO) 8.8 % (3.0-13.0); NEUTROPHILS % (AUTO) 55.7 % (40.0-77.0); PLATELET COUNT (AUTO) 207 K/uL (130-400); RED BLOOD CELL COUNT(AUTO) 4.64 MIL/uL (4.50-6.20); RED CELL DISTRIBUTION WIDTH 13.7 % (11.0-15.5); WHITE BLOOD COUNT (AUTO) 5.8 K/uL (4.8-10.8)
[2019-07-18 05:16] LABS: CREATININE 0.5 mg/dL (0.5-1.5); POTASSIUM 4.4 mmol/L (3.5-5.1)
[2019-07-18] MEDS: INSULIN GLARGINE 100 UNITS/ML 10 ML VIAL SQ SCH (05:45)
[2019-07-18 08:00] VITALS: BP 124/78
[2019-07-18] MEDS: FENOFIBRATE NANOCRYSTALLIZED 145 MG TAB PO SCH (10:06)
[2019-07-18] MEDS: FAMOTIDINE/PF 20 MG/2 ML VIAL IV SCH (10:07)
[2019-07-18] MEDS: METOPROLOL TARTRATE 25 MG TAB PO SCH (10:07)
[2019-07-18] MEDS: ENOXAPARIN SODIUM 30 MG/0.3 ML SQ SCH (10:08)
[2019-07-18 12:00] VITALS: BP 109/73
--- NOTE | 2019-07-18 15:28 | NUR ---
PICC line and PIV removed per verbal order by Valdez Casiano NP for discharge. Catheter intact, pressure applied to insertion site and dressed with 4x4 gauze and tegaderm. Patient notified to leave in place for 72 hours. Discharge instructions reviewed, patient acknowledges must follow up with Dr. William Bunch in 2-3 days and resume home medications. Patient informed to resume full liquid diet at home until further instructed by Dr. William Bunch. Provided education on causes, risks, symptoms and when to seek help for pancreatitis and diabetic ketoacidosis. Patient and family verbalized understanding. Patient declined wheelchair.
== END 2019-07-18 15:35 | disposition home or self-care (01) | DRG 871 ==
LOC: EDH 12:15 → EDHIP 12:16 → 2CH 07-10 17:25 → 3BH 07-15 15:06
PROVIDERS: ADMIT Internal Medicine; ATTEND Internal Medicine
PROC: 02HV33Z Insertion of Infusion Device into Superior Vena Cava, Percutaneous Approach (ICD-10-PCS; principal; 2019-07-12)
DX: A41.9 Sepsis, unspecified organism (principal); K85.90 Acute pancreatitis without necrosis or infection, unspecified; E11.10 Type 2 diabetes mellitus with ketoacidosis without coma; R65.21 Severe sepsis with septic shock; N39.0 Urinary tract infection, site not specified; E87.1 Hypo-osmolality and hyponatremia; F10.10 Alcohol abuse, uncomplicated; E78.1 Pure hyperglyceridemia; E87.8 Other disorders of electrolyte and fluid balance, not elsewhere classified; E87.6 Hypokalemia; K70.30 Alcoholic cirrhosis of liver without ascites; E66.9 Obesity, unspecified; Z68.32 Body mass index [BMI] 32.0-32.9, adult; E83.39 Other disorders of phosphorus metabolism; E83.42 Hypomagnesemia; E86.1 Hypovolemia; I10 Essential (primary) hypertension; Z91.19 Patient's noncompliance with other medical treatment and regimen; Z83.3 Family history of diabetes mellitus; Z82.49 Family history of ischemic heart disease and other diseases of the circulatory system
CPT/HCPCS: 36415; 36600; 71045; 74177; 76705; 80048; 80053; 80061; 80076; 81001; 82010; 82150; 82803; 82948; 83036; 83690; 83735; 83880; 84100; 84132; 84145; 84443; 84478; 85025; 85027; 85610; 85651; 85730; 86140; 87040; 87088; 93005; C1751; C1894; G0378; J0360; J0696; J1170; J1650; J1815; J1885; J2185; J2270; J2405; J2785; J2997; J3475; J3480; J3490; J7030; J7042; J7120; J7131; Q9967

== ENCOUNTER 2019-07-24 20:41 | Inpatient (IN) | payer OTHER ==
[~2019-07-24] VITALS: Ht 170.2 cm; Wt 79.4 kg
[~2019-07-24 20:41] MED LIST changes: -LEVO500T2 PO; +PRAV10TA39 PO
[2019-07-24] MEDS ORDERED: SODIUM CHLORIDE 0.9% 1000ML 1,000 ML IV ONE (20:50)
[2019-07-24 21:08] LABS: BASOPHILS % (AUTO) 1.4 % (0.0-5.0); EOSINOPHILS % (AUTO) 2.3 % (0.0-8.0); HEMATOCRIT 39.7 % (42-54); LYMPHOCYTES % (AUTO) 34.9 % (21.0-51.0); MEAN CORPUSCULAR HEMOGLOBIN 32.1 pg (27.0-33.0); MEAN CORPUSCULAR VOLUME 91.6 fL (79-99); MONOCYTES % (AUTO) 6.2 % (3.0-13.0); NEUTROPHILS % (AUTO) 55.2 % (40.0-77.0); PLATELET COUNT (AUTO) 256 K/uL (130-400); RED BLOOD CELL COUNT(AUTO) 4.34 MIL/uL (4.50-6.20); RED CELL DISTRIBUTION WIDTH 14.2 % (11.0-15.5)
[2019-07-24 21:16] LABS: CREATININE 0.7 mg/dL (0.5-1.5); POTASSIUM 4.2 mmol/L (3.5-5.1)
[2019-07-24] MEDS ORDERED: MORPHINE SULFATE 4 MG/1ML SYG ONE ×2 (21:19→21:46)
[2019-07-24] MEDS ORDERED: ONDANSETRON HCL 4 MG/2 ML VIAL ONE (21:19)
[2019-07-24 21:20] LABS: ALBUMIN 3.5 g/dL (3.5-5.0); BILIRUBIN,DIRECT 0.1 mg/dL (0.0-0.3); BILIRUBIN,TOTAL 0.6 mg/dL (0.2-1.0); TOTAL PROTEIN, SERUM 8.6 g/dL (6.0-8.3)
[2019-07-24] MEDS ORDERED: HYDROMORPHONE 1 MG/1 ML AMP ONE (23:21)
[2019-07-24] MEDS ORDERED: MORPHINE SULFATE 2 MG/ML 1ML SYG IV PRN (23:30)
[2019-07-24] MEDS ORDERED: MORPHINE SULFATE 4 MG/1ML SYG IV PRN (23:30)
[2019-07-24] MEDS ORDERED: HYDRALAZINE HCL 20 MG/ML VIAL IV PRN (23:30)
[2019-07-24] MEDS ORDERED: ACETAMINOPHEN 325 MG TAB PO PRN ×2 (23:30)
[2019-07-25] VITALS (7 sets, daily range): BP systolic 111–140; BP diastolic 74–95
[2019-07-25] MEDS ORDERED: METRONIDAZOLE 500 MG TABLET ONE (00:31)
[2019-07-25 00:40] LABS: APPEARANCE,URINE Clear (CLEAR); BILIRUBIN,URINE Negative (NEGATIVE); COLOR,URINE Yellow (YELLOW); GLUCOSE, URINE (UA) >=1000 mg/dL (NEGATIVE); KETONES,URINE Negative (NEGATIVE); LEUKOCYTE ESTERASE ,URINE Trace (NEGATIVE); NITRATE,URINE Negative (NEGATIVE); OCCULT BLOOD,URINE Negative (NEGATIVE); PROTEIN,URINE Negative (NEGATIVE); UROBILINOGEN,URINE 0.2 mg/dL (0.2-1.0)
[2019-07-25] MEDS ORDERED: METF-446 PO (01:03)
[2019-07-25] MEDS ORDERED: ATOR40TA71 PO (01:03)
[2019-07-25 01:10] LABS: BACTERIA,URINE Rare /HPF (None Seen); RBC,URINE None Seen /HPF (0-1)
--- NOTE | 2019-07-25 01:15 | NUR ---
admit note admit to room 404 via stretcher from er. patient awake,alert, ox3, no sob, no c/o pain at this time, teach patient npo status, plan of care and expected outcome, patient verbalizes understanding via teach back
[2019-07-25] MEDS ORDERED: PHARMACY COMMUNICATION MISC SCH (02:00)
[2019-07-25] MEDS: HYDROMORPHONE HCL 2 MG/ML VIAL IVP PRN ×5 (02:41→23:32)
[2019-07-25] MEDS: SODIUM CHLORIDE 0.9% 1000ML 1,000 ML IV SCH ×6 (02:45→18:11)
[2019-07-25 04:45] LABS: BASOPHILS % (AUTO) 0.8 % (0.0-5.0); EOSINOPHILS % (AUTO) 2.1 % (0.0-8.0); HEMATOCRIT 35.9 % (42-54); LYMPHOCYTES % (AUTO) 25.3 % (21.0-51.0); MEAN CORPUSCULAR HGB CONC 34.7 g/dL (32.0-36.0); MEAN CORPUSCULAR VOLUME 92.3 fL (79-99); MONOCYTES % (AUTO) 6.7 % (3.0-13.0); NEUTROPHILS % (AUTO) 65.1 % (40.0-77.0); PLATELET COUNT (AUTO) 211 K/uL (130-400); RED BLOOD CELL COUNT(AUTO) 3.89 MIL/uL (4.50-6.20); WHITE BLOOD COUNT (AUTO) 8.4 K/uL (4.8-10.8)
[2019-07-25 05:07] LABS: ALBUMIN 2.5 g/dL (3.5-5.0); BILIRUBIN,TOTAL 0.5 mg/dL (0.2-1.0); CREATININE 0.5 mg/dL (0.5-1.5); POTASSIUM 3.8 mmol/L (3.5-5.1); TOTAL PROTEIN, SERUM 6.1 g/dL (6.0-8.3)
[2019-07-25] MEDS: ONDANSETRON HCL 4 MG/2 ML VIAL IV PRN ×2 (05:49→13:23)
[2019-07-25] MEDS: INSULIN HUMULIN R 100 UNIT/ML 3ML SQ SCH ×3 (05:56→18:00)
[2019-07-25] MEDS ORDERED: INSULIN HUMULIN R 100 UNIT/ML 3ML SQ SCH ×2 (07:30)
[2019-07-25] MEDS: FAMOTIDINE/PF 20 MG/2 ML VIAL IV SCH ×2 (08:58→19:51)
[2019-07-25] MEDS ORDERED: METRONIDAZOLE 500 MG TABLET PO SCH (09:00)
[2019-07-25] MEDS: ENOXAPARIN SODIUM 30 MG/0.3 ML SQ SCH (09:02)
--- NOTE | 2019-07-25 09:30 | NUR ---
TIMOTHY AGUIRRE MD REGARDING CONSULT
--- NOTE | 2019-07-25 11:30 | NUR ---
DR. TAO MURCIA MD AWARE OF CONSULT
[2019-07-25] MEDS: KETOROLAC TROMETHAMINE 30MG/ML IM PRN (13:19)
--- NOTE | 2019-07-25 16:17 | NUR ---
D/C PLAN MINA spoke to pt regarding d/c planning. Pt lives with mother. States she can assist in care if needed. Pt states he has glucometer at home to monitor blood sugars. CM provided community resources packet. Plan to home. CM to f/u. Addendum: 07/25/19 at 1619 by CUONG COTE CM Amended: Links added.
[2019-07-25] MEDS ORDERED: METFORMIN HCL 500 MG TABLET PO SCH (17:00)
[2019-07-25] MEDS: SENNOSIDES 8.6 MG TABLET PO SCH (19:50)
[2019-07-25] MEDS: LACTATED RINGERS 1000ML 1,000 ML IV SCH (19:50)
[2019-07-25] MEDS ORDERED: ATORVASTATIN CALCIUM 40 MG TABLET PO SCH (21:00)
[2019-07-25] MEDS: MORPHINE SULFATE 4 MG/1ML SYG IV PRN (22:26)
[2019-07-26] MEDS: LACTATED RINGERS 1000ML 1,000 ML IV SCH ×3 (03:05→16:25)
[2019-07-26] MEDS: HYDROMORPHONE HCL 2 MG/ML VIAL IVP PRN ×3 (03:18→10:48)
[2019-07-26 04:00] VITALS: BP 123/76
[2019-07-26 05:25] LABS: BASOPHILS % (AUTO) 0.8 % (0.0-5.0); EOSINOPHILS % (AUTO) 1.9 % (0.0-8.0); HEMATOCRIT 33.3 % (42-54); LYMPHOCYTES % (AUTO) 24.9 % (21.0-51.0); MEAN CORPUSCULAR HEMOGLOBIN 32.1 pg (27.0-33.0); MEAN CORPUSCULAR HGB CONC 34.8 g/dL (32.0-36.0); MEAN CORPUSCULAR VOLUME 92.2 fL (79-99); MONOCYTES % (AUTO) 8.2 % (3.0-13.0); NEUTROPHILS % (AUTO) 64.2 % (40.0-77.0); NUCLEATED RED BLOOD CELLS 0.1 % (0.0-0.19); PLATELET COUNT (AUTO) 189 K/uL (130-400); RED BLOOD CELL COUNT(AUTO) 3.61 MIL/uL (4.50-6.20); WHITE BLOOD COUNT (AUTO) 6.2 K/uL (4.8-10.8)
[2019-07-26 05:44] LABS: ALBUMIN 2.4 g/dL (3.5-5.0); BILIRUBIN,TOTAL 1.1 mg/dL (0.2-1.0); CREATININE 0.4 mg/dL (0.5-1.5); POTASSIUM 3.5 mmol/L (3.5-5.1); TOTAL PROTEIN, SERUM 5.8 g/dL (6.0-8.3)
[2019-07-26 05:55] LABS: HEMOGLOBIN A1C 8.5 % (4.0-6.0)
[2019-07-26] MEDS: INSULIN HUMULIN R 100 UNIT/ML 3ML SQ SCH ×4 (06:00→17:24)
[2019-07-26 08:15] VITALS: BP 120/80
[2019-07-26] MEDS ORDERED: LISINOPRIL 10 MG TABLET PO SCH (09:00)
[2019-07-26] MEDS: SENNOSIDES 8.6 MG TABLET PO SCH ×2 (09:00→19:41)
[2019-07-26] MEDS ORDERED: IOHEXOL-350 75 ML VIAL IV ONE (09:51)
[2019-07-26] MEDS: FAMOTIDINE/PF 20 MG/2 ML VIAL IV SCH ×2 (10:47→19:41)
[2019-07-26] MEDS: ONDANSETRON HCL 4 MG/2 ML VIAL IV PRN (10:48)
[2019-07-26] MEDS: ENOXAPARIN SODIUM 30 MG/0.3 ML SQ SCH (10:48)
[2019-07-26 11:15] VITALS: BP 125/80
--- NOTE | 2019-07-26 14:07 | NUR ---
RD NOTIFICATION DIET: NPO. PT WITH RECURRING PANCREATITIS; HE WAS AT [facility] [place] [facility] ONE WEEK AGO WITH THE SAME DIAGNOSIS. RD PROVIDED DIET AND NUTRITION EDUCATION DURING HIS LAST STAY AT [facility] [place] [place], MATERIALS PROVIDED. PT CONTINUES WITH SEVERE ABDOMINAL PAIN AND VOMITING PER PT. AFTER BEING D/C LAST WEEK FROM [facility] [place], PT WAS DOING WELL UNTIL HE ATE A PIECE OF SANDWICH THAT SET HIM OFF AND LED HIM BACK HERE. SAM RECOMMENDS CONTINUE NPO ADVANCE DIET TOLERATED WHEN MEDICALLY FEASIBLE TO CLEAR LIQUIDS CONSULT GI FOR FURTHER RECOMMENDATIONS RD WILL CONTINUE TO MONITOR AND FOLLOW UP, THANK YOU. Addendum: 07/26/19 at [address] Amended: Links added.
[2019-07-26 16:20] VITALS: BP 133/82
[2019-07-26] MEDS: MORPHINE SULFATE 4 MG/1ML SYG IV PRN (17:24)
--- NOTE | 2019-07-26 19:05 | NUR ---
PAIN PATIENT COMPLAINS OF SEVERE ABD PAIN POST MORPHINE AND TORADOL. Nancy GASTON ARTISTS' MODEL NOTIFIED AND NEW ORDER FOR MORPHINE 4 MG IV GIVEN AND CARRIED OUT.
[2019-07-26] MEDS ORDERED: MORPHINE SULFATE 4 MG/1ML SYG IV PRN (19:45)
[2019-07-26 20:06] VITALS: BP 123/81
[2019-07-26] MEDS: KETOROLAC TROMETHAMINE 30MG/ML IM PRN (22:52)
[2019-07-26] MEDS ORDERED: FENTANYL 25 MCG/HR PATCH TD SCH (23:45)
--- NOTE | 2019-07-26 23:45 | NUR ---
PAIN PATIENT COMPLAINS AGAIN OF SEVERE ABD PAIN POST MORPHINE 4 MG AND TORADOL 30 MG. Nancy GASTON INSPECTOR QUALITY ASSURANCE NOTIFIED AND NEW ORDER TO DISCONTINUE MORPHINE AND TORADOL AND ORDER FENTANYL 25 MCG TRANSDERMAL. ORDERS RECEIVED AND CARRIED OUT.
[2019-07-26] MEDS ORDERED: FENTANYL 25 MCG/HR PATCH TD ONE (23:48)
[2019-07-27 00:12] VITALS: BP 124/73
[2019-07-27 04:12] VITALS: BP 113/64
[2019-07-27 04:35] LABS: EOSINOPHILS % (AUTO) 2.3 % (0.0-8.0); HEMATOCRIT 32.5 % (42-54); LYMPHOCYTES % (AUTO) 30.4 % (21.0-51.0); MEAN CORPUSCULAR HEMOGLOBIN 32.8 pg (27.0-33.0); MEAN CORPUSCULAR HGB CONC 35.4 g/dL (32.0-36.0); MEAN CORPUSCULAR VOLUME 92.5 fL (79-99); MONOCYTES % (AUTO) 8.9 % (3.0-13.0); NEUTROPHILS % (AUTO) 57.4 % (40.0-77.0); NUCLEATED RED BLOOD CELLS 0.1 % (0.0-0.19); PLATELET COUNT (AUTO) 167 K/uL (130-400); RED BLOOD CELL COUNT(AUTO) 3.51 MIL/uL (4.50-6.20); RED CELL DISTRIBUTION WIDTH 13.8 % (11.0-15.5); WHITE BLOOD COUNT (AUTO) 5.1 K/uL (4.8-10.8)
[2019-07-27 05:09] LABS: ALBUMIN 2.3 g/dL (3.5-5.0); BILIRUBIN,TOTAL 0.9 mg/dL (0.2-1.0); CREATININE 0.4 mg/dL (0.5-1.5); POTASSIUM 3.7 mmol/L (3.5-5.1); TOTAL PROTEIN, SERUM 5.9 g/dL (6.0-8.3)
[2019-07-27] MEDS: INSULIN HUMULIN R 100 UNIT/ML 3ML SQ SCH ×5 (06:00→21:30)
[2019-07-27] MEDS: LACTATED RINGERS 1000ML 1,000 ML IV SCH ×2 (06:14→12:51)
[2019-07-27 07:51] VITALS: BP 120/76
--- NOTE | 2019-07-27 08:40 | NUR ---
CALLED DR. NORRIS FOR CT ABD/PELVIS RESULTS, NO ANSWER AT THIS TIME.
[2019-07-27] MEDS: FAMOTIDINE/PF 20 MG/2 ML VIAL IV SCH ×2 (11:12→19:25)
[2019-07-27] MEDS: SENNOSIDES 8.6 MG TABLET PO SCH ×2 (11:13→19:24)
[2019-07-27] MEDS: ENOXAPARIN SODIUM 30 MG/0.3 ML SQ SCH (11:13)
[2019-07-27 11:14] VITALS: BP 119/77
--- NOTE | 2019-07-27 12:34 | NUR ---
PAGED DR. NORRIS FOR CT ABD/PELVIS RESULTS, NEW ORDERS TO START CLEAR LIQUIDS.
[2019-07-27 16:16] VITALS: BP 130/76
[2019-07-27 20:15] VITALS: BP 135/86
[2019-07-28 00:15] VITALS: BP 135/81
[2019-07-28 04:15] VITALS: BP 110/62
[2019-07-28 04:58] LABS: BASOPHILS % (AUTO) 0.8 % (0.0-5.0); EOSINOPHILS % (AUTO) 2.9 % (0.0-8.0); HEMATOCRIT 31.8 % (42-54); LYMPHOCYTES % (AUTO) 34.2 % (21.0-51.0); MEAN CORPUSCULAR HEMOGLOBIN 32.3 pg (27.0-33.0); MEAN CORPUSCULAR VOLUME 92.2 fL (79-99); MONOCYTES % (AUTO) 9.5 % (3.0-13.0); NEUTROPHILS % (AUTO) 52.6 % (40.0-77.0); NUCLEATED RED BLOOD CELLS 0.1 % (0.0-0.19); PLATELET COUNT (AUTO) 174 K/uL (130-400); RED BLOOD CELL COUNT(AUTO) 3.44 MIL/uL (4.50-6.20); WHITE BLOOD COUNT (AUTO) 4.1 K/uL (4.8-10.8)
[2019-07-28 05:16] LABS: ALBUMIN 2.3 g/dL (3.5-5.0); BILIRUBIN,TOTAL 0.8 mg/dL (0.2-1.0); CREATININE 0.5 mg/dL (0.5-1.5); POTASSIUM 3.7 mmol/L (3.5-5.1)
[2019-07-28] MEDS: INSULIN HUMULIN R 100 UNIT/ML 3ML SQ SCH ×3 (06:24→16:23)
[2019-07-28 07:56] VITALS: BP 142/94
[2019-07-28] MEDS: FAMOTIDINE/PF 20 MG/2 ML VIAL IV SCH (08:43)
[2019-07-28] MEDS: SENNOSIDES 8.6 MG TABLET PO SCH (08:44)
[2019-07-28] MEDS: LACTATED RINGERS 1000ML 1,000 ML IV SCH (08:45)
[2019-07-28] MEDS: ENOXAPARIN SODIUM 30 MG/0.3 ML SQ SCH (08:45)
[2019-07-28 11:21] VITALS: BP 126/76
[2019-07-28 15:58] VITALS: BP 122/75
--- NOTE | 2019-07-28 18:40 | NUR ---
INSTRUCTIONS DISCHARGE INSTRUCTIONS GIVEN TO PATIENT USING TEACH BACK. NO NEW PRESCRIPTIONS. ALL MD INSTRUCTIONS PRINTED AND PLACED IN PACKET. IV REMOVED WITH TIP INTACT. DIRECT PRESSURE APPLIED UNTIL BLEEDING CONTROLLED THEN SITE COVERED WITH GAUZE AND SECURED WITH TAPE. NO QUESTIONS OR CONCERNS VOICED. PENDING RIDE HOME.
== END 2019-07-28 18:51 | disposition home or self-care (01) | DRG 439 ==
LOC: EDH 20:41 → EDHIP 20:42 → 4AH 07-25 00:15
PROVIDERS: ADMIT Family Medicine; ATTEND Family Medicine
DX: K85.90 Acute pancreatitis without necrosis or infection, unspecified (principal); J98.11 Atelectasis; K86.3 Pseudocyst of pancreas; R18.8 Other ascites; K86.1 Other chronic pancreatitis; E78.5 Hyperlipidemia, unspecified; E11.65 Type 2 diabetes mellitus with hyperglycemia; K76.0 Fatty (change of) liver, not elsewhere classified; I10 Essential (primary) hypertension; Z79.84 Long term (current) use of oral hypoglycemic drugs; Z91.19 Patient's noncompliance with other medical treatment and regimen; Z91.11 Patient's noncompliance with dietary regimen; Z83.3 Family history of diabetes mellitus; Z82.49 Family history of ischemic heart disease and other diseases of the circulatory system
CPT/HCPCS: 36415; 74177; 74178; 76705; 80053; 80061; 80076; 81001; 82150; 82550; 82948; 83036; 83690; 84484; 85025; 93005; G0378; J1170; J1650; J1815; J1885; J2270; J2405; J3490; J7030; J7120; Q9967

== ENCOUNTER 2019-07-28 21:10 | Inpatient (IN) | payer OTHER ==
[~2019-07-28] VITALS: Ht 170.2 cm; Wt 76.2 kg
[~2019-07-28 21:10] MED LIST changes: +ATOR40TA71 PO; +METF-446 PO; -METF500S7 PO; -PRAV10TA39 PO
[2019-07-28 21:44] LABS: EOSINOPHILS % (AUTO) 2.7 % (0.0-8.0); HEMATOCRIT 37.5 % (42-54); MEAN CORPUSCULAR HEMOGLOBIN 32.1 pg (27.0-33.0); MEAN CORPUSCULAR HGB CONC 34.9 g/dL (32.0-36.0); MONOCYTES % (AUTO) 8.5 % (3.0-13.0); NEUTROPHILS % (AUTO) 59.8 % (40.0-77.0); NUCLEATED RED BLOOD CELLS 0.2 % (0.0-0.19); PLATELET COUNT (AUTO) 202 K/uL (130-400); RED BLOOD CELL COUNT(AUTO) 4.07 MIL/uL (4.50-6.20); RED CELL DISTRIBUTION WIDTH 13.8 % (11.0-15.5); WHITE BLOOD COUNT (AUTO) 5.2 K/uL (4.8-10.8)
[2019-07-28] MEDS ORDERED: MORPHINE SULFATE 4 MG/1ML SYG ONE ×2 (21:50→22:13)
[2019-07-28] MEDS ORDERED: ONDANSETRON HCL 4 MG/2 ML VIAL ONE (21:50)
[2019-07-28] MEDS ORDERED: SODIUM CHLORIDE 0.9% 1000ML 1,000 ML IV ONE (21:51)
[2019-07-28 21:59] LABS: CREATININE 0.6 mg/dL (0.5-1.5); POTASSIUM 3.5 mmol/L (3.5-5.1)
[2019-07-28 22:03] LABS: BILIRUBIN,DIRECT 0.1 mg/dL (0.0-0.3); BILIRUBIN,TOTAL 0.6 mg/dL (0.2-1.0); TOTAL PROTEIN, SERUM 7.6 g/dL (6.0-8.3)
[2019-07-28 22:10] LABS: INR 1.04 (0.85-1.15); PARTIAL THROMBOPLASTIN TIME 29.6 SEC (26.3-35.5); PROTHROMBIN TIME 10.7 SEC (9.6-11.6)
[2019-07-28] MEDS ORDERED: SODIUM CHLORIDE 0.9% 50 ML IV ONE (22:15)
[2019-07-29] MEDS ORDERED: KETOROLAC TROMETHAMINE 30MG/ML ONE (00:17)
[2019-07-29] MEDS ORDERED: SODIUM CHLORIDE 0.9% 1000ML 1,000 ML IV ONE (00:17)
[2019-07-29 00:27] LABS: APPEARANCE,URINE Clear (CLEAR); BILIRUBIN,URINE Negative (NEGATIVE); COLOR,URINE Yellow (YELLOW); GLUCOSE, URINE (UA) 250 mg/dL (NEGATIVE); KETONES,URINE 15 mg/dL (NEGATIVE); LEUKOCYTE ESTERASE ,URINE Trace (NEGATIVE); NITRATE,URINE Negative (NEGATIVE); OCCULT BLOOD,URINE Negative (NEGATIVE); PH,URINE 6.5 (5.0-8.0); PROTEIN,URINE Negative (NEGATIVE); UROBILINOGEN,URINE 0.2 mg/dL (0.2-1.0)
[2019-07-29 00:45] LABS: BACTERIA,URINE Rare /HPF (None Seen); RBC,URINE 0-1 /HPF (0-1); SQUAMOUS EPITHELIAL CELL,UR 0-2 /HPF (0-2)
[2019-07-29] MEDS ORDERED: HYDRALAZINE HCL 20 MG/ML VIAL IV PRN (02:00)
[2019-07-29 02:42] VITALS: BP 121/81
[2019-07-29] MEDS: HYDROMORPHONE HCL 2 MG/ML VIAL IVP PRN ×3 (02:56→20:10)
[2019-07-29] MEDS: LACTATED RINGERS 1000ML 1,000 ML IV SCH ×2 (02:56→15:40)
[2019-07-29 05:12] LABS: HEMOGLOBIN A1C 9.1 % (4.0-6.0)
[2019-07-29 05:41] LABS: ALBUMIN 2.3 g/dL (3.5-5.0); BILIRUBIN,TOTAL 0.4 mg/dL (0.2-1.0); CREATININE 0.5 mg/dL (0.5-1.5); POTASSIUM 3.5 mmol/L (3.5-5.1); TOTAL PROTEIN, SERUM 5.8 g/dL (6.0-8.3)
[2019-07-29] MEDS: INSULIN HUMULIN R 100 UNIT/ML 3ML SQ SCH ×2 (06:00→12:00)
[2019-07-29 08:00] VITALS: BP 121/77
[2019-07-29] MEDS: FAMOTIDINE/PF 20 MG/2 ML VIAL IV SCH ×2 (08:07→20:09)
[2019-07-29] MEDS ORDERED: FAMOTIDINE/PF 20 MG/2 ML VIAL IV SCH (09:00)
[2019-07-29 11:58] VITALS: BP 127/71
--- NOTE | 2019-07-29 14:47 | NUR ---
DCP CM met with pt discussed dc plans. Pt is independent prior to admission, lives at home with mother. Pt has glucometer at home. Goes to Dr William Bunch for follow up. Denies any other equipments/services. Feels safe to go back home, mother and brother able to assist with transportation and needs as necessary. Addendum: 07/29/19 at 1448 by JEFFREY FARRELL LVN CM Amended: Links added.
--- NOTE | 2019-07-29 14:54 | NUR ---
RD NOTIFICATION DIET: NPO SINCE ADMISSION AND PREVIOUS ADMISSION. PT WITH 4% WEIGHT LOSS IN 1 WEEK AND HAS PHYSICAL SIGNS OF MUSCLE LOSS; INDICATING PROTEIN/ CALORIE MALNUTRITION. PT CONTINUES WITH SEVERE ABDOMINAL PAIN DURING FOLLOW UP VISIT. RD PROVIDED PANCREATITIS AND DIABETIC DIET AND NUTRITION EDUCATION. MATERIALS PROVIDED TO PT TO TAKE HOME. RD RECOMMENDS TO CONSIDER ALTERNATE MEANS OF NUTRITION- PARENTERAL NUTRITION RD DOES NOT RECOMMEND TO ADVANCE DIET AT THIS TIME HOWEVER DOES NEED SOURCE OF NUTRITION RD WILL CONTINUE TO MONITOR AND FOLLOW UP NEEDED, THANK YOU. Addendum: 07/29/19 at [address] Amended: Links added.
[2019-07-29] MEDS ORDERED: KETOROLAC TROMETHAMINE 15MG/ML IV PRN (15:45)
[2019-07-29 15:46] VITALS: BP 136/84
[2019-07-29 19:37] VITALS: BP 134/78
[2019-07-29] MEDS: ONDANSETRON HCL 4 MG/2 ML VIAL IV PRN (20:16)
[2019-07-29 23:20] VITALS: BP 132/63
[2019-07-30 03:39] VITALS: BP 128/77
[2019-07-30] MEDS: LACTATED RINGERS 1000ML 1,000 ML IV SCH ×2 (04:40→17:39)
[2019-07-30] MEDS: INSULIN HUMULIN R 100 UNIT/ML 3ML SQ SCH ×6 (06:00→20:37)
[2019-07-30 08:00] VITALS: BP 134/83
[2019-07-30] MEDS: FAMOTIDINE/PF 20 MG/2 ML VIAL IV SCH ×2 (09:25→20:43)
[2019-07-30] MEDS: ONDANSETRON HCL 4 MG/2 ML VIAL IV PRN ×2 (09:25→20:45)
[2019-07-30] MEDS: HYDROMORPHONE HCL 2 MG/ML VIAL IVP PRN (09:26)
[2019-07-30 11:25] VITALS: BP 135/82
[2019-07-30 15:43] VITALS: BP 129/84
[2019-07-30] MEDS ORDERED: TRAMADOL HCL 50 MG TABLET PO PRN (15:45)
[2019-07-30 19:30] VITALS: BP 138/78
--- NOTE | 2019-07-30 20:43 | NUR ---
MEDS PT COMPLAINTS OF ABDOMINAL PAINS AND NAUSEA. SHIFT ASSESSMENT DONE, PLEASE REFER TO CHART. DUE MEDS ADMINISTERED, TOLERATED WELL. KEPT RESTED AND COMFORTABLE IN BED. CALL LIGHT WITHIN REACH. WILL RE-ASSESS PT. Addendum: 07/30/19 at 2324 by ROLANDO PERAZA RN RN Amended: Links added.
[2019-07-30 23:44] VITALS: BP 131/73
--- NOTE | 2019-07-31 01:41 | NUR ---
ROUNDS PT RESTING WELL, NO DISTRESS NOTED. KEPT UNDISTURBED FOR NOW. WILL MONITOR PT. CALL LIGHT WITHIN REACH.
[2019-07-31 03:30] VITALS: BP 132/78
[2019-07-31] MEDS: LACTATED RINGERS 1000ML 1,000 ML IV SCH (05:11)
--- NOTE | 2019-07-31 05:29 | NUR ---
ROUNDS PT RESTING WELL, STILL FAIRLY ASLEEP. NO DISTRESS NOTED. KEPT COMFORTABLE. FOR MORE CARE.
[2019-07-31 05:43] LABS: BASOPHILS % (AUTO) 0.7 % (0.0-5.0); EOSINOPHILS % (AUTO) 3.9 % (0.0-8.0); HEMATOCRIT 30.7 % (42-54); LYMPHOCYTES % (AUTO) 35.2 % (21.0-51.0); MEAN CORPUSCULAR HEMOGLOBIN 31.8 pg (27.0-33.0); MEAN CORPUSCULAR HGB CONC 34.8 g/dL (32.0-36.0); MEAN CORPUSCULAR VOLUME 91.5 fL (79-99); MONOCYTES % (AUTO) 9.4 % (3.0-13.0); NEUTROPHILS % (AUTO) 50.8 % (40.0-77.0); PLATELET COUNT (AUTO) 194 K/uL (130-400); RED BLOOD CELL COUNT(AUTO) 3.36 MIL/uL (4.50-6.20); RED CELL DISTRIBUTION WIDTH 14.1 % (11.0-15.5); WHITE BLOOD COUNT (AUTO) 4.5 K/uL (4.8-10.8)
[2019-07-31] MEDS: INSULIN HUMULIN R 100 UNIT/ML 3ML SQ SCH ×2 (05:53→11:30)
[2019-07-31 06:17] LABS: CREATININE 0.6 mg/dL (0.5-1.5); POTASSIUM 3.3 mmol/L (3.5-5.1)
[2019-07-31 08:00] VITALS: BP 132/85
[2019-07-31] MEDS: FAMOTIDINE/PF 20 MG/2 ML VIAL IV SCH (10:05)
[2019-07-31 11:45] VITALS: BP 131/85
[2019-07-31] MEDS ORDERED: POTASSIUM CHLORIDE 10% ELIXIR 20 MEQ/15 ML UDCUP PO SCH ×2 (14:45→17:30)
[2019-07-31 16:00] VITALS: BP 130/92
== END 2019-07-31 18:15 | disposition home or self-care (01) | DRG 392 ==
LOC: EDH 21:10 → EDHIP 21:11 → OBSVTOIN 21:11 → 3DH 07-29 02:27
PROVIDERS: ADMIT Internal Medicine; ATTEND Internal Medicine
DX: R10.9 Unspecified abdominal pain (principal); K86.1 Other chronic pancreatitis; Z82.49 Family history of ischemic heart disease and other diseases of the circulatory system; Z83.3 Family history of diabetes mellitus; E11.65 Type 2 diabetes mellitus with hyperglycemia; I10 Essential (primary) hypertension; E87.6 Hypokalemia; E78.00 Pure hypercholesterolemia, unspecified; I25.10 Atherosclerotic heart disease of native coronary artery without angina pectoris
CPT/HCPCS: 36415; 80048; 80053; 80061; 80076; 81001; 82550; 82948; 83036; 83605; 83690; 84484; 85025; 85610; 85730; 93005; G0378; J1170; J1885; J2270; J2405; J3490; J7030; J7120

== ENCOUNTER 2019-08-02 00:54 | Emergency (ER) | payer OTHER ==
[2019-08-02] MEDS ORDERED: SODIUM CHLORIDE 0.9% 1000ML 1,000 ML IV ONE (01:31)
[2019-08-02 01:39] LABS: EOSINOPHILS % (AUTO) 3.7 % (0.0-8.0); HEMATOCRIT 37.9 % (42-54); LYMPHOCYTES % (AUTO) 34.1 % (21.0-51.0); MEAN CORPUSCULAR HEMOGLOBIN 32.3 pg (27.0-33.0); MEAN CORPUSCULAR HGB CONC 34.7 g/dL (32.0-36.0); MEAN CORPUSCULAR VOLUME 92.8 fL (79-99); NEUTROPHILS % (AUTO) 52.2 % (40.0-77.0); NUCLEATED RED BLOOD CELLS 0.2 % (0.0-0.19); PLATELET COUNT (AUTO) 200 K/uL (130-400); RED BLOOD CELL COUNT(AUTO) 4.08 MIL/uL (4.50-6.20); RED CELL DISTRIBUTION WIDTH 14.1 % (11.0-15.5); WHITE BLOOD COUNT (AUTO) 4.8 K/uL (4.8-10.8)
[2019-08-02 01:42] LABS: CARBON DIOXIDE 28 mmol/L (21-32); CHLORIDE 103 mmol/L (101-111); CREATININE 0.6 mg/dL (0.5-1.5); GLOMERULAR FILTR. RATE CALC 168 mL/min (>60); GLUCOSE,RANDOM 127 mg/dL (70-105); POTASSIUM 3.7 mmol/L (3.5-5.1); SODIUM SERUM 142 mmol/L (136-145); UREA NITROGEN, BLOOD 5 mg/dL (7-18)
[2019-08-02 01:44] LABS: APPEARANCE,URINE Clear (CLEAR); BILIRUBIN,URINE Negative (NEGATIVE); COLOR,URINE Dark Yellow (YELLOW); GLUCOSE, URINE (UA) TRACE mg/dL (NEGATIVE); KETONES,URINE Trace mg/dL (NEGATIVE); LEUKOCYTE ESTERASE ,URINE Moderate (NEGATIVE); NITRATE,URINE Negative (NEGATIVE); OCCULT BLOOD,URINE Negative (NEGATIVE); PROTEIN,URINE POS 2+ mg/dL (NEGATIVE)
[2019-08-02 01:45] LABS: INR 1.09 (0.85-1.15); PARTIAL THROMBOPLASTIN TIME 29.2 SEC (26.3-35.5); PROTHROMBIN TIME 11.4 SEC (9.6-11.6)
[2019-08-02 01:46] LABS: ALANINE AMINOTRANSFERASE 24 U/L (12-78); ALBUMIN 3.5 g/dL (3.5-5.0); ALCOHOL, BLOOD < 3 mg/dL (0-10); ASPARTATE AMINOTRANSFERASE 19 U/L (10-37); BILIRUBIN,TOTAL 0.9 mg/dL (0.2-1.0); CREATINE KINASE, TOTAL 22 U/L (21-232); LIPASE 399 U/L (114-286); TOTAL PROTEIN, SERUM 7.7 g/dL (6.0-8.3)
[2019-08-02 01:56] LABS: BACTERIA,URINE Few /HPF (None Seen); MUCUS,URINE Many LPF (None Seen)
[2019-08-02] MEDS ORDERED: METOCLOPRAMIDE 10 MG/2 ML VIAL ONE (02:28)
[2019-08-02] MEDS ORDERED: DiphenhydrAMINE HCL 50 MG/ML VIAL ONE (02:28)
[2019-08-02] MEDS ORDERED: ONDANSETRON HCL 4 MG/2 ML VIAL ONE (02:29)
[2019-08-02] MEDS ORDERED: FAMOTIDINE/PF 20 MG/2 ML VIAL IV ONE (02:30)
== END 2019-08-02 05:06 | disposition home or self-care (01) ==
LOC: EDH 00:54
DX: K29.70 Gastritis, unspecified, without bleeding (principal); E86.9 Volume depletion, unspecified; R10.13 Epigastric pain; E11.9 Type 2 diabetes mellitus without complications; E78.00 Pure hypercholesterolemia, unspecified; I10 Essential (primary) hypertension
CPT/HCPCS: 36415; 80053; 81001; 82550; 83605; 83690; 85025; 85610; 85730; 96361; 96374; 96375; 99284; G0480; J1200; J2405; J2765; J3490; J7030

== ENCOUNTER 2019-08-05 22:44 | Emergency (ER) | payer OTHER ==
[2019-08-05] MEDS ORDERED: ONDANSETRON HCL 4 MG/2 ML VIAL ONE (23:11)
[2019-08-05] MEDS ORDERED: METOCLOPRAMIDE 10 MG/2 ML VIAL ONE (23:11)
[2019-08-05] MEDS ORDERED: SODIUM CHLORIDE 0.9% 1000ML 1,000 ML IV ONE (23:14)
[2019-08-05] MEDS ORDERED: FAMOTIDINE/PF 20 MG/2 ML VIAL IV ONE (23:14)
[2019-08-05 23:22] LABS: BASOPHILS % (AUTO) 0.9 % (0.0-5.0); EOSINOPHILS % (AUTO) 2.5 % (0.0-8.0); HEMATOCRIT 39.1 % (42-54); LYMPHOCYTES % (AUTO) 32.5 % (21.0-51.0); MEAN CORPUSCULAR HEMOGLOBIN 31.5 pg (27.0-33.0); MEAN CORPUSCULAR HGB CONC 34.4 g/dL (32.0-36.0); MEAN CORPUSCULAR VOLUME 91.6 fL (79-99); NEUTROPHILS % (AUTO) 56.1 % (40.0-77.0); NUCLEATED RED BLOOD CELLS 0.1 % (0.0-0.19); PLATELET COUNT (AUTO) 201 K/uL (130-400); RED BLOOD CELL COUNT(AUTO) 4.26 MIL/uL (4.50-6.20); RED CELL DISTRIBUTION WIDTH 14.5 % (11.0-15.5); WHITE BLOOD COUNT (AUTO) 5.8 K/uL (4.8-10.8)
[2019-08-05 23:44] LABS: CREATININE 0.6 mg/dL (0.5-1.5); POTASSIUM 3.7 mmol/L (3.5-5.1)
[2019-08-05 23:48] LABS: ALBUMIN 3.7 g/dL (3.5-5.0); BILIRUBIN,TOTAL 1.2 mg/dL (0.2-1.0); TOTAL PROTEIN, SERUM 8.3 g/dL (6.0-8.3)
[2019-08-06] MEDS ORDERED: DiphenhydrAMINE HCL 50 MG/ML VIAL ONE (00:18)
[2019-08-06] MEDS ORDERED: KETOROLAC TROMETHAMINE 30MG/ML ONE (00:19)
[2019-08-06] MEDS ORDERED: SODIUM CHLORIDE 0.9% 1000ML 1,000 ML IV ONE (00:23)
== END 2019-08-06 02:05 | disposition home or self-care (01) ==
LOC: EDH 22:44
DX: E86.9 Volume depletion, unspecified (principal); R10.13 Epigastric pain; R11.2 Nausea with vomiting, unspecified; I10 Essential (primary) hypertension; E78.00 Pure hypercholesterolemia, unspecified; E11.9 Type 2 diabetes mellitus without complications
CPT/HCPCS: 36415; 80053; 83690; 85025; 96361; 96374; 96375 ×2; 99284; J1200; J1885; J2405; J2765; J3490; J7030 ×2

== ENCOUNTER 2019-08-19 21:21 | Emergency (ER) | payer OTHER ==
[2019-08-19 22:08] LABS: APPEARANCE,URINE Clear (CLEAR); BILIRUBIN,URINE Negative (NEGATIVE); COLOR,URINE Yellow (YELLOW); GLUCOSE, URINE (UA) >=1000 mg/dL (NEGATIVE); KETONES,URINE Trace mg/dL (NEGATIVE); LEUKOCYTE ESTERASE ,URINE Negative (NEGATIVE); NITRATE,URINE Negative (NEGATIVE); OCCULT BLOOD,URINE Negative (NEGATIVE); PH,URINE 6.5 (5.0-8.0); PROTEIN,URINE POS 1+ mg/dL (NEGATIVE)
[2019-08-19 22:12] LABS: BASOPHILS % (AUTO) 0.9 % (0.0-5.0); EOSINOPHILS % (AUTO) 2.9 % (0.0-8.0); HEMATOCRIT 38.6 % (42-54); LYMPHOCYTES % (AUTO) 36.2 % (21.0-51.0); MEAN CORPUSCULAR HEMOGLOBIN 30.5 pg (27.0-33.0); MEAN CORPUSCULAR HGB CONC 33.9 g/dL (32.0-36.0); MONOCYTES % (AUTO) 7.2 % (3.0-13.0); NEUTROPHILS % (AUTO) 52.5 % (40.0-77.0); PLATELET COUNT (AUTO) 126 K/uL (130-400); RED BLOOD CELL COUNT(AUTO) 4.29 MIL/uL (4.50-6.20); RED CELL DISTRIBUTION WIDTH 13.9 % (11.0-15.5); WHITE BLOOD COUNT (AUTO) 5.8 K/uL (4.8-10.8)
[2019-08-19] MEDS ORDERED: SODIUM CHLORIDE 0.9% 1000ML 1,000 ML IV ONE (22:13)
[2019-08-19] MEDS ORDERED: MORPHINE SULFATE 4 MG/1ML SYG ONE (22:14)
[2019-08-19] MEDS ORDERED: ONDANSETRON HCL 4 MG/2 ML VIAL ONE (22:14)
[2019-08-19 22:23] LABS: BACTERIA,URINE Rare /HPF (None Seen); RBC,URINE None Seen /HPF (0-1); SQUAMOUS EPITHELIAL CELL,UR 0-2 /HPF (0-2)
[2019-08-19 22:29] LABS: CREATININE 0.7 mg/dL (0.5-1.5); POTASSIUM 3.9 mmol/L (3.5-5.1)
[2019-08-19 22:34] LABS: ALBUMIN 4.3 g/dL (3.5-5.0); BILIRUBIN,TOTAL 1.3 mg/dL (0.2-1.0); TOTAL PROTEIN, SERUM 8.1 g/dL (6.0-8.3)
== END 2019-08-20 00:25 | disposition home or self-care (01) ==
LOC: EDH 21:21
DX: K86.1 Other chronic pancreatitis (principal)
CPT/HCPCS: 36415; 74176; 80053; 81001; 83690; 85025; 96374; 96375; 99285; J2270; J2405; J7030; 96361

== ENCOUNTER 2020-05-29 04:59 | Emergency (ER) | payer SELFPAY ==
[2020-05-29 05:29] LABS: EOSINOPHILS % (AUTO) 3.9 % (0.0-8.0); LYMPHOCYTES % (AUTO) 38.1 % (21.0-51.0); MEAN CORPUSCULAR HGB CONC 48.6 g/dL (32.0-36.0); MEAN CORPUSCULAR VOLUME 86.3 fL (79-99); MONOCYTES % (AUTO) 9.1 % (3.0-13.0); NEUTROPHILS % (AUTO) 47.5 % (40.0-77.0); PLATELET COUNT (AUTO) 204 K/uL (130-400); RED BLOOD CELL COUNT(AUTO) 5.12 MIL/uL (4.50-6.20); RED CELL DISTRIBUTION WIDTH 12.5 % (11.0-15.5); WHITE BLOOD COUNT (AUTO) 7.7 K/uL (4.8-10.8)
[2020-05-29 05:34] LABS: APPEARANCE,URINE Clear (CLEAR); BILIRUBIN,URINE Negative (NEGATIVE); COLOR,URINE Yellow (YELLOW); GLUCOSE, URINE (UA) >=1000 mg/dL (NEGATIVE); KETONES,URINE 40 mg/dL (NEGATIVE); LEUKOCYTE ESTERASE ,URINE Negative (NEGATIVE); NITRATE,URINE Negative (NEGATIVE); OCCULT BLOOD,URINE Negative (NEGATIVE); PROTEIN,URINE POS 1+ mg/dL (NEGATIVE); UROBILINOGEN,URINE 0.2 mg/dL (0.2-1.0)
[2020-05-29 05:37] LABS: HEMATOCRIT 44.2 % (42-54)
[2020-05-29] MEDS ORDERED: DiphenhydrAMINE HCL 50 MG/ML VIAL ONE (05:40)
[2020-05-29] MEDS ORDERED: FENTANYL CITRATE PF 50 MCG/1 ML 2ML VIAL ONE (05:41)
[2020-05-29 05:42] LABS: AMPHET/METH SCREEN,URINE NEGATIVE (NEGATIVE); BARBITURATE SCREEN, URINE NEGATIVE (NEGATIVE); BENZODIAZEPINES SCREEN,URINE NEGATIVE (NEGATIVE); CANNABINOID SCREEN,URINE NEGATIVE (NEGATIVE); COCAINE SCREEN,URINE NEGATIVE (NEGATIVE); OPIATE SCREEN,URINE NEGATIVE (NEGATIVE); PHENCYCLIDINE SCREEN,URINE NEGATIVE (NEGATIVE)
[2020-05-29 05:47] LABS: BACTERIA,URINE None Seen /HPF (None Seen); RBC,URINE None Seen /HPF (0-1); WBC,URINE 0-1 /HPF (0-1)
[2020-05-29 06:20] LABS: POTASSIUM 3.6 mmol/L (3.5-5.1)
[2020-05-29 06:22] LABS: CREATININE 0.7 mg/dL (0.5-1.5)
[2020-05-29 06:23] LABS: BILIRUBIN,TOTAL 1.1 mg/dL (0.2-1.0)
[2020-05-29 06:24] LABS: ALBUMIN 4.1 g/dL (3.5-5.0); TOTAL PROTEIN, SERUM 6.6 g/dL (6.0-8.3)
[2020-05-29] MEDS ORDERED: MAGNESIUM OXIDE 400 MG TABLET PO ONE ×2 (06:37→06:38)
[2020-05-29] MEDS ORDERED: KETOROLAC TROMETHAMINE 30MG/ML ONE (06:37)
== END 2020-05-29 07:45 | disposition home or self-care (01) ==
LOC: EDH 04:59
DX: E11.40 Type 2 diabetes mellitus with diabetic neuropathy, unspecified (principal); E11.65 Type 2 diabetes mellitus with hyperglycemia; E86.0 Dehydration; E83.42 Hypomagnesemia; I10 Essential (primary) hypertension
CPT/HCPCS: 36415; 80053; 80305; 81001; 82550; 83605; 83690; 83735; 84484; 85025; 86140; 87040 ×2; 93005; 96361; 96374; 96375; 99285; J1200; J1885; J3010

== ENCOUNTER 2020-08-15 18:47 | Emergency (ER) | payer SELFPAY ==
[2020-08-15 19:07] LABS: BASOPHILS % (AUTO) 0.9 % (0.0-5.0); EOSINOPHILS % (AUTO) 4.3 % (0.0-8.0); HEMATOCRIT 47.3 % (42-54); LYMPHOCYTES % (AUTO) 35.9 % (21.0-51.0); MEAN CORPUSCULAR HEMOGLOBIN 32.6 pg (27.0-33.0); MEAN CORPUSCULAR HGB CONC 37.6 g/dL (32.0-36.0); MEAN CORPUSCULAR VOLUME 86.6 fL (79-99); MONOCYTES % (AUTO) 5.7 % (3.0-13.0); NEUTROPHILS % (AUTO) 52.9 % (40.0-77.0); PLATELET COUNT (AUTO) 160 K/uL (130-400); RED BLOOD CELL COUNT(AUTO) 5.46 MIL/uL (4.50-6.20); RED CELL DISTRIBUTION WIDTH 12.7 % (11.0-15.5); WHITE BLOOD COUNT (AUTO) 7.4 K/uL (4.8-10.8)
[2020-08-15 19:17] LABS: CREATININE 0.7 mg/dL (0.5-1.5); POTASSIUM 3.9 mmol/L (3.5-5.1)
[2020-08-15 19:21] LABS: ALBUMIN 4.2 g/dL (3.5-5.0); BILIRUBIN,TOTAL 1.7 mg/dL (0.2-1.0)
[2020-08-15 19:24] LABS: PARTIAL THROMBOPLASTIN TIME 28.7 SEC (26.3-35.5)
[2020-08-15] MEDS ORDERED: METOCLOPRAMIDE 10 MG/2 ML VIAL ONE (19:33)
[2020-08-15] MEDS ORDERED: ONDANSETRON HCL 4 MG/2 ML VIAL ONE (19:34)
[2020-08-15] MEDS ORDERED: PANTOPRAZOLE 40 MG/VIAL ONE (19:34)
[2020-08-15] MEDS ORDERED: FAMOTIDINE/PF 20 MG/2 ML VIAL IV ONE (19:35)
[2020-08-15 19:59] LABS: TOTAL PROTEIN, SERUM 7.6 g/dL (6.0-8.3)
== END 2020-08-15 21:25 | disposition home or self-care (01) ==
LOC: EDH 18:47
DX: K29.00 Acute gastritis without bleeding (principal); R10.13 Epigastric pain; R11.10 Vomiting, unspecified; E11.9 Type 2 diabetes mellitus without complications; I10 Essential (primary) hypertension; E78.00 Pure hypercholesterolemia, unspecified
CPT/HCPCS: 36415; 76705; 80053; 82550; 83690; 84484; 85025; 85610; 85730; 93005; 96361 ×2; 96374; 96375; 99284; C9113; J2405; J2765; J3490

== ENCOUNTER 2020-09-08 16:15 | Inpatient (IN) | payer OTHER ==
[~2020-09-08] VITALS: Ht 170.2 cm; Wt 79.4 kg
[2020-09-08 16:46] LABS: APPEARANCE,URINE Clear (CLEAR); BILIRUBIN,URINE Negative (NEGATIVE); COLOR,URINE Yellow (YELLOW); GLUCOSE, URINE (UA) >=1000 mg/dL (NEGATIVE); KETONES,URINE >=80 mg/dL (NEGATIVE); LEUKOCYTE ESTERASE ,URINE Trace (NEGATIVE); NITRATE,URINE Negative (NEGATIVE); OCCULT BLOOD,URINE Nonhemolyzed Trace (NEGATIVE); PH,URINE 5.5 (5.0-8.0); PROTEIN,URINE Trace mg/dL (NEGATIVE); UROBILINOGEN,URINE 0.2 mg/dL (0.2-1.0)
[2020-09-08] MEDS ORDERED: SODIUM CHLORIDE 0.9% 1000ML 1,000 ML IV ONE (16:58)
[2020-09-08] MEDS ORDERED: ONDANSETRON HCL 4 MG/2 ML VIAL ONE (16:58)
[2020-09-08] MEDS ORDERED: MORPHINE SULFATE 4 MG/1ML SYG ONE (17:17)
[2020-09-08 17:42] LABS: BACTERIA,URINE Rare /HPF (None Seen); SQUAMOUS EPITHELIAL CELL,UR None Seen /HPF (0-2)
[2020-09-08 17:49] LABS: ABG BASE EXCESS -1.7 mmol/L (-2.0-3.0); ABG HCO3 23.6 mmol/L (21.0-28.0); ABG OXYGEN SATURATION 96.4 % (95.0-99.0); ABG PCO2 42 mmHg (35-48)
[2020-09-08 17:59] LABS: BILIRUBIN,TOTAL 1.1 mg/dL (0.2-1.0); CREATININE 0.6 mg/dL (0.5-1.5)
[2020-09-08 18:00] LABS: ALBUMIN 3.7 g/dL (3.5-5.0); TOTAL PROTEIN, SERUM 5.3 g/dL (6.0-8.3)
[2020-09-08 18:13] LABS: BASOPHILS % (AUTO) 0.6 % (0.0-5.0); EOSINOPHILS % (AUTO) 3.9 % (0.0-8.0); HEMATOCRIT 46.9 % (42-54); LYMPHOCYTES % (AUTO) 22.4 % (21.0-51.0); MEAN CORPUSCULAR HEMOGLOBIN 32.5 pg (27.0-33.0); MEAN CORPUSCULAR HGB CONC 37.3 g/dL (32.0-36.0); MONOCYTES % (AUTO) 5.6 % (3.0-13.0); NEUTROPHILS % (AUTO) 67.1 % (40.0-77.0); NUCLEATED RED BLOOD CELLS 0.4 % (0.0-0.19); PLATELET COUNT (AUTO) 220 K/uL (130-400); RED BLOOD CELL COUNT(AUTO) 5.39 MIL/uL (4.50-6.20); RED CELL DISTRIBUTION WIDTH 13.2 % (11.0-15.5); WHITE BLOOD COUNT (AUTO) 10.7 K/uL (4.8-10.8)
[2020-09-08] MEDS ORDERED: HYDROMORPHONE HCL 0.5 MG/0.5 ML ML ONE (19:14)
[2020-09-08] MEDS ORDERED: INSULIN HUMULIN R 100 UNIT/ML 3ML ONE (19:49)
[2020-09-08] MEDS ORDERED: DEXTROSE 50%-WATER 50 ML DISP.SYRIN IV PRN (22:00)
[2020-09-08] MEDS ORDERED: GLUCAGON 1MG KIT 1 MG ML IM PRN (22:00)
[2020-09-08] MEDS ORDERED: MAGNESIUM 2GM PREMIX 50ML 50 ML IV PRN (22:00)
[2020-09-08] MEDS ORDERED: LIDOCAINE HCL-MPF 1% 2ML VIAL IV PRN (22:00)
[2020-09-08] MEDS ORDERED: POTASSIUM CHLORIDE 20MEQ/100ML 100 ML IV PRN (22:00)
[2020-09-08] MEDS ORDERED: ONDANSETRON HCL 4 MG/2 ML VIAL IV PRN (22:30)
[2020-09-08] MEDS ORDERED: ACETAMINOPHEN 325 MG TAB PO PRN ×2 (22:30)
[2020-09-08] MEDS ORDERED: MORPHINE SULFATE 2 MG/ML 1ML SYG ONE (23:17)
[2020-09-08] MEDS ORDERED: CEFTRIAXONE SODIUM 1 GM ONE (23:41)
[2020-09-08] MEDS ORDERED: LACTATED RINGERS 1000ML 1,000 ML IV ONE (23:41)
[2020-09-09] MEDS ORDERED: LIDOCAINE HCL-MPF 1% 2ML VIAL ONE (00:56)
[2020-09-09] MEDS ORDERED: POTASSIUM CHLORIDE 20MEQ/100ML 100 ML IV ONE (00:56)
[2020-09-09 01:10] VITALS: BP 132/78
[2020-09-09] MEDS: LACTATED RINGERS 1000ML 1,000 ML IV SCH ×3 (01:55→14:31)
[2020-09-09] MEDS: CEFTRIAXONE SODIUM 1 GM IVP SCH ×3 (01:55→21:38)
[2020-09-09] MEDS: MORPHINE SULFATE 2 MG/ML 1ML SYG IVP PRN ×4 (03:21→21:45)
[2020-09-09 04:00] VITALS: BP 122/74
[2020-09-09 06:08] LABS: BASOPHILS % (AUTO) 0.5 % (0.0-5.0); EOSINOPHILS % (AUTO) 3.3 % (0.0-8.0); HEMATOCRIT 40.4 % (42-54); MEAN CORPUSCULAR HEMOGLOBIN 37.7 pg (27.0-33.0); MEAN CORPUSCULAR HGB CONC 43.6 g/dL (32.0-36.0); MEAN CORPUSCULAR VOLUME 86.5 fL (79-99); MONOCYTES % (AUTO) 7.9 % (3.0-13.0); PLATELET COUNT (AUTO) 142 K/uL (130-400); RED BLOOD CELL COUNT(AUTO) 4.67 MIL/uL (4.50-6.20); RED CELL DISTRIBUTION WIDTH 12.8 % (11.0-15.5); WHITE BLOOD COUNT (AUTO) 7.8 K/uL (4.8-10.8)
[2020-09-09 06:49] LABS: CARBON DIOXIDE 11 mmol/L (21-32); CHLORIDE 96 mmol/L (101-111); GLUCOSE,RANDOM 308 mg/dL (70-105); LDL DIRECT 155 mg/dL (0-99); POTASSIUM 3.7 mmol/L (3.5-5.1); SODIUM SERUM 129 mmol/L (136-145)
[2020-09-09 08:00] VITALS: BP 130/76
[2020-09-09 08:45] LABS: ALANINE AMINOTRANSFERASE 11 U/L (12-78); ASPARTATE AMINOTRANSFERASE 9 U/L (10-37); BILIRUBIN,TOTAL 0.6 mg/dL (0.2-1.0); CHOLESTEROL < 50 mg/dL (<200); CREATININE 0.3 mg/dL (0.5-1.5); GLOMERULAR FILTR. RATE CALC 372 mL/min (>60); HDL CHOLESTEROL 11 mg/dL (29-71); TOTAL PROTEIN, SERUM 3.3 g/dL (6.0-8.3); TRIGLYCERIDES 191 mg/dL (30-200)
[2020-09-09] MEDS: FAMOTIDINE/PF 20 MG/2 ML VIAL IV SCH ×2 (09:20→20:49)
[2020-09-09 10:10] LABS: UREA NITROGEN, BLOOD 6 mg/dL (7-18)
[2020-09-09] MEDS ORDERED: INSULIN GLARGINE 100 UNITS/ML 10 ML VIAL SQ ONE ×2 (11:30→15:05)
[2020-09-09] MEDS ORDERED: INSULIN GLARGINE 100 UNITS/ML 10 ML VIAL SQ SCH (11:45)
[2020-09-09 12:00] VITALS: BP 121/78
[2020-09-09 12:34] LABS: AMPHET/METH SCREEN,URINE NEGATIVE (NEGATIVE); BARBITURATE SCREEN, URINE NEGATIVE (NEGATIVE); BENZODIAZEPINES SCREEN,URINE NEGATIVE (NEGATIVE); CANNABINOID SCREEN,URINE NEGATIVE (NEGATIVE); COCAINE SCREEN,URINE NEGATIVE (NEGATIVE); OPIATE SCREEN,URINE NEGATIVE (NEGATIVE); PHENCYCLIDINE SCREEN,URINE NEGATIVE (NEGATIVE)
[2020-09-09] MEDS: INSULIN GLARGINE 100 UNITS/ML 10 ML VIAL SQ SCH (13:00)
[2020-09-09 14:28] LABS: POTASSIUM 3.4 mmol/L (3.5-5.1)
[2020-09-09 15:24] LABS: CREATININE 0.4 mg/dL (0.5-1.5)
[2020-09-09 16:00] VITALS: BP 122/79
[2020-09-09] MEDS: INSULIN HUMULIN R 100 UNIT/ML 3ML SQ SCH (18:00)
[2020-09-09 20:00] VITALS: BP 119/73
[2020-09-09] MEDS: ATORVASTATIN CALCIUM 40 MG TABLET PO SCH ×2 (20:49→21:00)
[2020-09-10] VITALS (7 sets, daily range): BP systolic 114–130; BP diastolic 72–81
[2020-09-10] MEDS: LACTATED RINGERS 1000ML 1,000 ML IV SCH ×3 (04:45→23:02)
[2020-09-10] MEDS: INSULIN HUMULIN R 100 UNIT/ML 3ML SQ SCH ×5 (05:56→20:39)
[2020-09-10 07:09] LABS: BASOPHILS % (AUTO) 0.6 % (0.0-5.0); EOSINOPHILS % (AUTO) 4.4 % (0.0-8.0); HEMATOCRIT 40.4 % (42-54); LYMPHOCYTES % (AUTO) 30.5 % (21.0-51.0); MEAN CORPUSCULAR HEMOGLOBIN 31.9 pg (27.0-33.0); MEAN CORPUSCULAR HGB CONC 36.6 g/dL (32.0-36.0); MEAN CORPUSCULAR VOLUME 87.1 fL (79-99); MONOCYTES % (AUTO) 6.4 % (3.0-13.0); NEUTROPHILS % (AUTO) 57.9 % (40.0-77.0); PLATELET COUNT (AUTO) 129 K/uL (130-400); RED BLOOD CELL COUNT(AUTO) 4.64 MIL/uL (4.50-6.20); WHITE BLOOD COUNT (AUTO) 5.4 K/uL (4.8-10.8)
[2020-09-10 07:54] LABS: ALANINE AMINOTRANSFERASE 26 U/L (12-78); ALBUMIN 2.8 g/dL (3.5-5.0); ASPARTATE AMINOTRANSFERASE 16 U/L (10-37); BILIRUBIN,DIRECT < 0.1 mg/dL (0.0-0.3); BILIRUBIN,TOTAL 0.8 mg/dL (0.2-1.0); CARBON DIOXIDE 24 mmol/L (21-32); CHLORIDE 100 mmol/L (101-111); CREATININE 0.4 mg/dL (0.5-1.5); GLOMERULAR FILTR. RATE CALC 267 mL/min (>60); GLUCOSE,RANDOM 155 mg/dL (70-105); LIPASE 129 U/L (114-286); POTASSIUM 3.6 mmol/L (3.5-5.1); SODIUM SERUM 135 mmol/L (136-145); TOTAL PROTEIN, SERUM 6.4 g/dL (6.0-8.3); UREA NITROGEN, BLOOD 6 mg/dL (7-18)
[2020-09-10] MEDS ORDERED: INSULIN GLARGINE 100 UNITS/ML 10 ML VIAL SQ ONE (09:00)
[2020-09-10] MEDS: INSULIN GLARGINE 100 UNITS/ML 10 ML VIAL SQ SCH (09:28)
[2020-09-10] MEDS: CEFTRIAXONE SODIUM 1 GM IVP SCH ×2 (09:28→20:37)
[2020-09-10] MEDS: MORPHINE SULFATE 2 MG/ML 1ML SYG IVP PRN (09:39)
[2020-09-10] MEDS: FAMOTIDINE/PF 20 MG/2 ML VIAL IV SCH ×2 (09:40→20:37)
[2020-09-10] MEDS: LISINOPRIL 10 MG TABLET PO SCH (09:40)
[2020-09-10 10:51] LABS: HEMOGLOBIN A1C 9.4 % (4.0-6.0)
[2020-09-10] MEDS ORDERED: GADODIAMIDE 10 MMOL/20 ML VIAL IV ONE (12:49)
[2020-09-10] MEDS: ATORVASTATIN CALCIUM 40 MG TABLET PO SCH (20:37)
[2020-09-11 03:50] VITALS: BP 102/60
[2020-09-11] MEDS: INSULIN HUMULIN R 100 UNIT/ML 3ML SQ SCH ×3 (05:29→17:06)
[2020-09-11] MEDS: LACTATED RINGERS 1000ML 1,000 ML IV SCH (06:31)
[2020-09-11 06:32] LABS: BASOPHILS % (AUTO) 0.5 % (0.0-5.0); HEMATOCRIT 39.2 % (42-54); LYMPHOCYTES % (AUTO) 33.8 % (21.0-51.0); MEAN CORPUSCULAR HEMOGLOBIN 31.1 pg (27.0-33.0); MEAN CORPUSCULAR HGB CONC 35.2 g/dL (32.0-36.0); MEAN CORPUSCULAR VOLUME 88.3 fL (79-99); MONOCYTES % (AUTO) 9.5 % (3.0-13.0); NEUTROPHILS % (AUTO) 50.9 % (40.0-77.0); PLATELET COUNT (AUTO) 106 K/uL (130-400); RED BLOOD CELL COUNT(AUTO) 4.44 MIL/uL (4.50-6.20); RED CELL DISTRIBUTION WIDTH 13.2 % (11.0-15.5)
[2020-09-11 06:57] LABS: CREATININE 0.4 mg/dL (0.5-1.5); POTASSIUM 3.3 mmol/L (3.5-5.1)
[2020-09-11 08:06] VITALS: BP 108/63
[2020-09-11] MEDS: INSULIN GLARGINE 100 UNITS/ML 10 ML VIAL SQ SCH (08:38)
[2020-09-11] MEDS: FAMOTIDINE/PF 20 MG/2 ML VIAL IV SCH (08:39)
[2020-09-11] MEDS: LISINOPRIL 10 MG TABLET PO SCH (08:40)
[2020-09-11] MEDS ORDERED: POTASSIUM CHLORIDE 10% ELIXIR 20 MEQ/15 ML UDCUP PO PRN (09:00)
[2020-09-11] MEDS ORDERED: POTASSIUM CHLORIDE 20MEQ/100ML 100 ML IV PRN (09:00)
[2020-09-11] MEDS: CEFTRIAXONE SODIUM 1 GM IVP SCH (10:19)
[2020-09-11] MEDS: POTASSIUM CHLORIDE 20 MEQ ERTAB PO PRN ×3 (10:22→16:59)
[2020-09-11 11:40] VITALS: BP 113/77
[2020-09-11] MEDS ORDERED: GLIM2TAB30 PO (15:24)
[2020-09-11 16:00] VITALS: BP 111/67
== END 2020-09-11 18:10 | disposition home or self-care (01) | DRG 439 ==
LOC: EDH 16:15 → EDHIP 22:16 → 3DH 09-09 01:15
PROVIDERS: ADMIT Internal Medicine; ATTEND Internal Medicine
DX: K85.90 Acute pancreatitis without necrosis or infection, unspecified (principal); N39.0 Urinary tract infection, site not specified; E87.1 Hypo-osmolality and hyponatremia; K86.1 Other chronic pancreatitis; E11.65 Type 2 diabetes mellitus with hyperglycemia; E87.8 Other disorders of electrolyte and fluid balance, not elsewhere classified; I10 Essential (primary) hypertension; E78.00 Pure hypercholesterolemia, unspecified; E86.0 Dehydration; Z82.49 Family history of ischemic heart disease and other diseases of the circulatory system; Z83.3 Family history of diabetes mellitus
CPT/HCPCS: 36415; 36600; 74176; 74183; 76705; 80048; 80053; 80061; 80076; 80305; 81001; 82010; 82150; 82803; 82948; 83036; 83690; 83735; 84145; 85025; 87088; A9579; G0378; J0696; J1170; J1815; J2270; J2405; J3475; J3480; J3490; J7030; J7120

== ENCOUNTER 2020-12-23 03:48 | Inpatient (IN) | payer OTHER ==
[2020-12-23] VITALS (15 sets, daily range): BP systolic 101–137; BP diastolic 47–96
[~2020-12-23] VITALS: Ht 170.2 cm; Wt 75.0 kg
[~2020-12-23 03:48] MED LIST changes: +LISI10TA24 PO; -LISI10TA7 PO
[2020-12-23 04:07] LABS: APPEARANCE,URINE Clear (CLEAR); BILIRUBIN,URINE Negative (NEGATIVE); COLOR,URINE Yellow (YELLOW); GLUCOSE, URINE (UA) >=1000 mg/dL (NEGATIVE); KETONES,URINE >=80 mg/dL (NEGATIVE); LEUKOCYTE ESTERASE ,URINE Small (NEGATIVE); NITRATE,URINE Negative (NEGATIVE); OCCULT BLOOD,URINE Nonhemolyzed Trace (NEGATIVE); PROTEIN,URINE POS 2+ mg/dL (NEGATIVE); UROBILINOGEN,URINE 0.2 mg/dL (0.2-1.0)
[2020-12-23] MEDS ORDERED: ONDANSETRON 4MG INJ ONE (04:12)
[2020-12-23] MEDS ORDERED: MORPHINE 4 MG SYG ONE (04:13)
[2020-12-23 04:17] LABS: BASOPHILS % (AUTO) 0.8 % (0.0-5.0); EOSINOPHILS % (AUTO) 1.8 % (0.0-8.0); HEMATOCRIT 47.6 % (42-54); LYMPHOCYTES % (AUTO) 18.4 % (21.0-51.0); MEAN CORPUSCULAR VOLUME 84.8 fL (79-99); MONOCYTES % (AUTO) 4.6 % (3.0-13.0); PLATELET COUNT (AUTO) 221 K/uL (130-400); RED BLOOD CELL COUNT(AUTO) 5.61 MIL/uL (4.50-6.20); RED CELL DISTRIBUTION WIDTH 13.1 % (11.0-15.5); WHITE BLOOD COUNT (AUTO) 12.7 K/uL (4.8-10.8)
[2020-12-23 04:24] LABS: MEAN CORPUSCULAR HEMOGLOBIN 28.3 pg (27.0-33.0); MEAN CORPUSCULAR HGB CONC 33.4 g/dL (32.0-36.0)
[2020-12-23] MEDS ORDERED: HYDROMORPHONE 0.5 MG SYG (0.5MG/0.5ML) ONE ×2 (04:28→09:38)
[2020-12-23 04:30] LABS: BACTERIA,URINE Few /HPF (None Seen); WBC,URINE 26-50 /HPF (0-1)
[2020-12-23 04:38] LABS: AMPHET/METH SCREEN,URINE NEGATIVE (NEGATIVE); BARBITURATE SCREEN, URINE NEGATIVE (NEGATIVE); BENZODIAZEPINES SCREEN,URINE NEGATIVE (NEGATIVE); CANNABINOID SCREEN,URINE NEGATIVE (NEGATIVE); COCAINE SCREEN,URINE NEGATIVE (NEGATIVE); OPIATE SCREEN,URINE NEGATIVE (NEGATIVE); PHENCYCLIDINE SCREEN,URINE NEGATIVE (NEGATIVE)
[2020-12-23 04:39] LABS: MAGNESIUM 1.8 mg/dL (1.80-2.40)
[2020-12-23] MEDS ORDERED: CEFTRIAXONE 1G VIAL ONE (04:56)
[2020-12-23] MEDS ORDERED: 0.9%NACL 1000ML 1,000 ML IV ONE ×2 (05:03→12:33)
[2020-12-23 05:10] LABS: POTASSIUM 4.8 mmol/L (3.5-5.1)
[2020-12-23 05:11] LABS: BILIRUBIN,TOTAL 1.6 mg/dL (0.2-1.0); CREATININE 0.4 mg/dL (0.5-1.5)
[2020-12-23 05:12] LABS: ALBUMIN 4.1 g/dL (3.5-5.0); TOTAL PROTEIN, SERUM 7.7 g/dL (6.0-8.3)
[2020-12-23 05:20] LABS: ABG OXYGEN SATURATION 95.1 % (95.0-99.0); ABG PCO2 45 mmHg (35-48)
[2020-12-23] MEDS ORDERED: INSULIN HUMULIN R 100 UNIT/ML 3ML ONE ×2 (05:21→06:11)
[2020-12-23] MEDS ORDERED: IOHEXOL 350 MG/ML 100ML INFUS..BTL IV ONE (05:56)
[2020-12-23] MEDS: 0.9%NACL 1000ML 1,000 ML IV SCH ×4 (06:00→21:00)
[2020-12-23] MEDS ORDERED: 0.9%NACL 1000ML 1,000 ML IV SCH ×2 (06:00→06:15)
[2020-12-23] MEDS: INSULIN HUMULIN R 100 UNIT/ML 3ML IV SCH (06:00)
[2020-12-23] MEDS ORDERED: DEXTROSE 5 %-0.45 % NACL 1,000 ML IV PRN (06:00)
[2020-12-23] MEDS ORDERED: 0.9%NACL 100ML 100 ML IV ONE (06:10)
[2020-12-23] MEDS ORDERED: ACETAMINOPHEN 325 MG TAB PO PRN ×2 (06:15)
[2020-12-23] MEDS ORDERED: NITROGLYCERIN 0.4 MG SL TAB SL PRN (06:15)
[2020-12-23] MEDS ORDERED: MORPHINE 2 MG SYG ONE (07:20)
[2020-12-23] MEDS ORDERED: INSULIN REGULAR, HUMAN 3ML 100 UNIT in 0.9%NACL 100ML 99 ML IV PRN ×2 (07:30)
[2020-12-23 07:46] LABS: ABG BASE EXCESS -3.2 mmol/L (-2.0-3.0); ABG HCO3 21.7 mmol/L (21.0-28.0); ABG OXYGEN SATURATION 96.3 % (95.0-99.0); ABG PCO2 39 mmHg (35-48)
[2020-12-23] MEDS ORDERED: INSU100I26 SQ (08:36)
[2020-12-23] MEDS ORDERED: FAMOTIDINE 20MG VIAL IV ONE (08:40)
[2020-12-23] MEDS ORDERED: ENOXAPARIN SODIUM 30 MG/0.3 ML SQ ONE (08:40)
[2020-12-23] MEDS ORDERED: FAMOTIDINE 20MG VIAL IV SCH (09:00)
[2020-12-23] MEDS: PANTOPRAZOLE 40 MG/VIAL IVP SCH (09:00)
[2020-12-23] MEDS: ENOXAPARIN SODIUM 30 MG/0.3 ML SQ SCH (09:00)
[2020-12-23 09:27] LABS: CARBON DIOXIDE 17 mmol/L (21-32); CHLORIDE 99 mmol/L (101-111); GLUCOSE,RANDOM 312 mg/dL (70-105); POTASSIUM 3.9 mmol/L (3.5-5.1); SODIUM SERUM 136 mmol/L (136-145); UREA NITROGEN, BLOOD 10 mg/dL (7-18)
[2020-12-23 09:33] LABS: CREATININE < 0.2 mg/dL (0.5-1.5); GLOMERULAR FILTR. RATE CALC 593 mL/min (>60)
[2020-12-23] MEDS ORDERED: MAGNESIUM 2GM PREMIX 50ML 50 ML IV ONE (10:51)
[2020-12-23] MEDS ORDERED: 0.9%NACL 50ML 50 ML IV ONE (10:52)
[2020-12-23] MEDS ORDERED: MAGNESIUM 2GM PREMIX 50ML 50 ML IV PRN (11:00)
[2020-12-23 12:05] LABS: ABG BASE EXCESS -2.2 mmol/L (-2.0-3.0); ABG HCO3 23.3 mmol/L (21.0-28.0); ABG OXYGEN SATURATION 95.4 % (95.0-99.0); ABG PCO2 42 mmHg (35-48)
[2020-12-23 12:29] LABS: MAGNESIUM 1.9 mg/dL (1.80-2.40); POTASSIUM 3.8 mmol/L (3.5-5.1)
[2020-12-23 12:48] LABS: CREATININE 0.4 mg/dL (0.5-1.5)
[2020-12-23] MEDS: HYDROMORPHONE 0.5 MG SYG (0.5MG/0.5ML) IVP PRN ×2 (14:53→19:43)
[2020-12-23] MEDS: ONDANSETRON 4MG INJ IV PRN (19:43)
[2020-12-23 20:03] LABS: CREATININE 0.5 mg/dL (0.5-1.5); MAGNESIUM 1.9 mg/dL (1.80-2.40); POTASSIUM 3.3 mmol/L (3.5-5.1)
[2020-12-23] MEDS: ATORVASTATIN 40 MG TABLET PO SCH (21:00)
[2020-12-23] MEDS ORDERED: LISINOPRIL 10 MG TABLET PO SCH (21:00)
[2020-12-24] VITALS (23 sets, daily range): BP systolic 96–153; BP diastolic 47–96
[2020-12-24] MEDS: HYDROMORPHONE 0.5 MG SYG (0.5MG/0.5ML) IVP PRN ×5 (00:11→19:57)
[2020-12-24 03:39] LABS: BASOPHILS % (AUTO) 0.2 % (0.0-5.0); EOSINOPHILS % (AUTO) 4.7 % (0.0-8.0); HEMATOCRIT 40.9 % (42-54); LYMPHOCYTES % (AUTO) 20.5 % (21.0-51.0); MEAN CORPUSCULAR HGB CONC 36.4 g/dL (32.0-36.0); MEAN CORPUSCULAR VOLUME 87.8 fL (79-99); MONOCYTES % (AUTO) 7.3 % (3.0-13.0); NEUTROPHILS % (AUTO) 67.1 % (40.0-77.0); PLATELET COUNT (AUTO) 103 K/uL (130-400); RED BLOOD CELL COUNT(AUTO) 4.66 MIL/uL (4.50-6.20); RED CELL DISTRIBUTION WIDTH 13.7 % (11.0-15.5); WHITE BLOOD COUNT (AUTO) 4.3 K/uL (4.8-10.8)
[2020-12-24 03:55] LABS: BILIRUBIN,TOTAL 1.6 mg/dL (0.2-1.0); CREATININE 0.4 mg/dL (0.5-1.5); MAGNESIUM 2.5 mg/dL (1.80-2.40); POTASSIUM 3.1 mmol/L (3.5-5.1)
[2020-12-24] MEDS: POTASSIUM CHLORIDE 10MEQ/100ML 100 ML IV PRN ×2 (04:35→08:10)
[2020-12-24] MEDS: ONDANSETRON 4MG INJ IV PRN (05:42)
[2020-12-24] MEDS: LIDOCAINE HCL-MPF 1% 2ML VIAL IV PRN ×2 (06:03→08:31)
[2020-12-24 06:07] LABS: CHOLESTEROL 229 mg/dL (<200); HDL CHOLESTEROL 31 mg/dL (29-71); LDL DIRECT 39 mg/dL (0-99); LIPASE 55 U/L (114-286); TRIGLYCERIDES 1167 mg/dL (30-200)
[2020-12-24] MEDS: 0.9%NACL 1000ML 1,000 ML IV SCH ×5 (06:09→16:11)
[2020-12-24] MEDS: INSULIN HUMULIN R 100 UNIT/ML 3ML IV SCH (07:00)
[2020-12-24] MEDS: PANTOPRAZOLE 40 MG/VIAL IVP SCH (08:27)
[2020-12-24] MEDS: CEFTRIAXONE 1G VIAL IV SCH (08:31)
[2020-12-24] MEDS: ENOXAPARIN SODIUM 30 MG/0.3 ML SQ SCH (09:00)
[2020-12-24] MEDS ORDERED: POTASSIUM CHLORIDE 10% ELIXIR 20 MEQ/15 ML UDCUP PO SCH (09:15)
[2020-12-24] MEDS ORDERED: POTASSIUM CHLORIDE 20MEQ/100ML 100 ML IV PRN (09:15)
[2020-12-24 16:20] LABS: ALBUMIN 2.9 g/dL (3.5-5.0); BILIRUBIN,TOTAL 1.4 mg/dL (0.2-1.0); CREATININE 0.5 mg/dL (0.5-1.5); POTASSIUM 3.8 mmol/L (3.5-5.1); TOTAL PROTEIN, SERUM 6.1 g/dL (6.0-8.3)
[2020-12-24] MEDS: ATORVASTATIN 40 MG TABLET PO SCH (19:58)
[2020-12-24] MEDS: D5W-1/2 NS/20MEQ KCL 1,000 ML IV SCH (20:55)
[2020-12-25] VITALS (29 sets, daily range): BP systolic 87–150; BP diastolic 39–91
[2020-12-25] MEDS: HYDROMORPHONE 0.5 MG SYG (0.5MG/0.5ML) IVP PRN ×3 (00:21→20:30)
[2020-12-25] MEDS: ONDANSETRON 4MG INJ IV PRN ×2 (00:21→20:29)
[2020-12-25] MEDS: D5W-1/2 NS/20MEQ KCL 1,000 ML IV SCH ×3 (00:40→13:58)
[2020-12-25] MEDS: 0.9%NACL 1000ML 1,000 ML IV SCH ×3 (03:00→13:00)
[2020-12-25 06:05] LABS: ALBUMIN 2.7 g/dL (3.5-5.0); BILIRUBIN,TOTAL 0.9 mg/dL (0.2-1.0); CREATININE 0.4 mg/dL (0.5-1.5); POTASSIUM 3.3 mmol/L (3.5-5.1); TOTAL PROTEIN, SERUM 5.7 g/dL (6.0-8.3)
[2020-12-25 06:17] LABS: BASOPHILS % (AUTO) 0.3 % (0.0-5.0); EOSINOPHILS % (AUTO) 5.4 % (0.0-8.0); HEMATOCRIT 37.4 % (42-54); MEAN CORPUSCULAR HEMOGLOBIN 31.9 pg (27.0-33.0); MEAN CORPUSCULAR HGB CONC 36.9 g/dL (32.0-36.0); MEAN CORPUSCULAR VOLUME 86.4 fL (79-99); MONOCYTES % (AUTO) 10.5 % (3.0-13.0); NEUTROPHILS % (AUTO) 44.5 % (40.0-77.0); PLATELET COUNT (AUTO) 102 K/uL (130-400); RED BLOOD CELL COUNT(AUTO) 4.33 MIL/uL (4.50-6.20); RED CELL DISTRIBUTION WIDTH 13.8 % (11.0-15.5); WHITE BLOOD COUNT (AUTO) 3.5 K/uL (4.8-10.8)
[2020-12-25] MEDS ORDERED: POTASSIUM CHLORIDE 20MEQ/100ML 100 ML IV SCH (07:45)
[2020-12-25] MEDS ORDERED: POTASSIUM CHLORIDE 20 MEQ/100 ML BAG IV ONE (07:45)
[2020-12-25] MEDS: PANTOPRAZOLE 40 MG/VIAL IVP SCH (08:03)
[2020-12-25] MEDS: CEFTRIAXONE 1G VIAL IV SCH (08:03)
[2020-12-25] MEDS: ENOXAPARIN SODIUM 30 MG/0.3 ML SQ SCH ×2 (08:05→13:54)
[2020-12-25] MEDS ORDERED: PROPOFOL 10 MG/ML 20ML VIAL IV ONE (12:31)
[2020-12-25] MEDS ORDERED: INSULIN GLARGINE 100 UNITS/ML 10 ML VIAL SQ SCH (13:30)
[2020-12-25] MEDS ORDERED: GLUCAGON 1MG KIT 1 MG ML IM PRN (13:30)
[2020-12-25] MEDS ORDERED: DEXTROSE 50%-WATER 50 ML DISP.SYRIN IV PRN (13:30)
[2020-12-25] MEDS: INSULIN HUMULIN R 100 UNIT/ML 3ML SQ SCH ×2 (16:24→21:00)
[2020-12-25] MEDS: ATORVASTATIN 40 MG TABLET PO SCH (20:29)
[2020-12-26] VITALS (8 sets, daily range): BP systolic 107–133; BP diastolic 46–83
[2020-12-26] MEDS: ONDANSETRON 4MG INJ IV PRN ×2 (01:47→20:23)
[2020-12-26] MEDS: HYDROMORPHONE 0.5 MG SYG (0.5MG/0.5ML) IVP PRN (01:49)
[2020-12-26] MEDS: INSULIN HUMULIN R 100 UNIT/ML 3ML SQ SCH ×4 (05:25→21:36)
[2020-12-26] MEDS: MORPHINE 2 MG SYG IVP PRN ×2 (05:29→20:23)
[2020-12-26 05:58] LABS: BASOPHILS % (AUTO) 0.6 % (0.0-5.0); EOSINOPHILS % (AUTO) 6.4 % (0.0-8.0); HEMATOCRIT 40.8 % (42-54); LYMPHOCYTES % (AUTO) 48.5 % (21.0-51.0); MEAN CORPUSCULAR HEMOGLOBIN 31.7 pg (27.0-33.0); MEAN CORPUSCULAR HGB CONC 35.5 g/dL (32.0-36.0); MEAN CORPUSCULAR VOLUME 89.1 fL (79-99); MONOCYTES % (AUTO) 8.4 % (3.0-13.0); NEUTROPHILS % (AUTO) 35.8 % (40.0-77.0); PLATELET COUNT (AUTO) 124 K/uL (130-400); RED BLOOD CELL COUNT(AUTO) 4.58 MIL/uL (4.50-6.20); RED CELL DISTRIBUTION WIDTH 13.6 % (11.0-15.5); WHITE BLOOD COUNT (AUTO) 3.6 K/uL (4.8-10.8)
[2020-12-26 06:13] LABS: ALBUMIN 3.1 g/dL (3.5-5.0); BILIRUBIN,TOTAL 1.6 mg/dL (0.2-1.0); CREATININE 0.4 mg/dL (0.5-1.5); POTASSIUM 3.8 mmol/L (3.5-5.1); TOTAL PROTEIN, SERUM 6.4 g/dL (6.0-8.3)
[2020-12-26] MEDS: PANTOPRAZOLE 40 MG/VIAL IVP SCH (09:59)
[2020-12-26] MEDS: CEFTRIAXONE 1G VIAL IV SCH (09:59)
[2020-12-26] MEDS: ENOXAPARIN SODIUM 30 MG/0.3 ML SQ SCH (10:00)
[2020-12-26] MEDS: ATORVASTATIN 40 MG TABLET PO SCH (20:19)
[2020-12-27 00:11] VITALS: BP 117/69
[2020-12-27 04:02] VITALS: BP_SYST 100; BP_SYST 129; BP_DIAS 60; BP_DIAS 79
[2020-12-27 05:35] LABS: BASOPHILS % (AUTO) 0.7 % (0.0-5.0); EOSINOPHILS % (AUTO) 6.2 % (0.0-8.0); HEMATOCRIT 44.3 % (42-54); LYMPHOCYTES % (AUTO) 43.1 % (21.0-51.0); MEAN CORPUSCULAR HEMOGLOBIN 30.8 pg (27.0-33.0); MEAN CORPUSCULAR HGB CONC 34.8 g/dL (32.0-36.0); MEAN CORPUSCULAR VOLUME 88.6 fL (79-99); NEUTROPHILS % (AUTO) 39.8 % (40.0-77.0); PLATELET COUNT (AUTO) 148 K/uL (130-400); RED CELL DISTRIBUTION WIDTH 13.2 % (11.0-15.5); WHITE BLOOD COUNT (AUTO) 4.2 K/uL (4.8-10.8)
[2020-12-27 05:52] LABS: ALBUMIN 3.3 g/dL (3.5-5.0); BILIRUBIN,TOTAL 1.8 mg/dL (0.2-1.0); CREATININE 0.6 mg/dL (0.5-1.5); POTASSIUM 3.7 mmol/L (3.5-5.1); TOTAL PROTEIN, SERUM 6.8 g/dL (6.0-8.3)
[2020-12-27] MEDS ORDERED: INSULIN GLARGINE 100 UNITS/ML 10 ML VIAL SQ SCH (06:00)
[2020-12-27] MEDS: INSULIN HUMULIN R 100 UNIT/ML 3ML SQ SCH ×6 (06:44→17:00)
[2020-12-27 07:47] VITALS: BP 105/61
[2020-12-27] MEDS: CEFTRIAXONE 1G VIAL IV SCH (09:29)
[2020-12-27] MEDS: PANTOPRAZOLE 40 MG/VIAL IVP SCH (09:29)
[2020-12-27] MEDS: ENOXAPARIN SODIUM 30 MG/0.3 ML SQ SCH (09:30)
[2020-12-27 12:04] VITALS: BP 110/62
[2020-12-27] MEDS ORDERED: APIX5TAB PO (13:22)
[2020-12-27] MEDS ORDERED: APIXABAN 5 MG TABLET PO SCH (15:00)
[2021-01-04] MEDS ORDERED: LISI10TA24 PO (21:50)
[2021-01-04] MEDS ORDERED: APIX5TAB PO (21:50)
[2021-01-04] MEDS ORDERED: INSU100I26 SQ (21:50)
[2021-01-04] MEDS ORDERED: ATOR40TA71 PO (21:50)
[2021-01-04] MEDS ORDERED: GLIM2TAB30 PO (21:50)
[2021-01-04] MEDS ORDERED: METF-446 PO (21:50)
[2021-01-04] MEDS ORDERED: FENO145T26 PO (21:50)
== END 2020-12-27 17:30 | disposition home or self-care (01) | DRG 391 ==
LOC: EDH 03:48 → EDHIP 06:00 → 2CH 14:37 → 3CH 12-26 01:33
PROVIDERS: ADMIT Hospitalist; ATTEND Hospitalist
PROC: 0DB68ZX Excision of Stomach, Via Natural or Artificial Opening Endoscopic, Diagnostic (ICD-10-PCS; principal; 2020-12-25)
DX: K29.70 Gastritis, unspecified, without bleeding (principal); E11.10 Type 2 diabetes mellitus with ketoacidosis without coma; I82.890 Acute embolism and thrombosis of other specified veins; K86.1 Other chronic pancreatitis; K70.30 Alcoholic cirrhosis of liver without ascites; D73.5 Infarction of spleen; E78.1 Pure hyperglyceridemia; E78.5 Hyperlipidemia, unspecified; E11.42 Type 2 diabetes mellitus with diabetic polyneuropathy; E11.65 Type 2 diabetes mellitus with hyperglycemia; I86.8 Varicose veins of other specified sites; I10 Essential (primary) hypertension; R16.1 Splenomegaly, not elsewhere classified; D69.6 Thrombocytopenia, unspecified; F10.20 Alcohol dependence, uncomplicated; Z79.4 Long term (current) use of insulin; Z79.899 Other long term (current) drug therapy; Z83.3 Family history of diabetes mellitus; Z82.49 Family history of ischemic heart disease and other diseases of the circulatory system
CPT/HCPCS: 36415; 36600; 43239; 74177; 76700; 76705; 80048; 80053; 80061; 80305; 81001; 81241; 82435; 82803; 82947; 82948; 83036; 83605; 83690; 83735; 84132; 84295; 85018; 85025; 85300; 85303; 85306; 87040; 87088; 93005; C9113; G0378; J0696; J1170; J1650; J1815; J2270; J2405; J2704; J3475; J3480; J3490; J7030; J7042; Q9967

== ENCOUNTER 2021-01-17 10:03 | Observation (INO) | payer OTHER ==
[~2021-01-17] VITALS: Ht 170.2 cm; Wt 76.5 kg
[~2021-01-17 10:03] MED LIST changes: +APIX5TAB PO; +FENO145T26 PO; +GLIM2TAB30 PO; +INSU100I26 SQ
[2021-01-17 10:57] LABS: BASOPHILS % (AUTO) 0.7 % (0.0-5.0); EOSINOPHILS % (AUTO) 3.3 % (0.0-8.0); HEMATOCRIT 41.5 % (42-54); LYMPHOCYTES % (AUTO) 37.6 % (21.0-51.0); MEAN CORPUSCULAR HGB CONC 36.6 g/dL (32.0-36.0); MEAN CORPUSCULAR VOLUME 84.7 fL (79-99); MONOCYTES % (AUTO) 7.1 % (3.0-13.0); PLATELET COUNT (AUTO) 154 K/uL (130-400); RED CELL DISTRIBUTION WIDTH 12.9 % (11.0-15.5); WHITE BLOOD COUNT (AUTO) 5.8 K/uL (4.8-10.8)
[2021-01-17 11:08] LABS: CREATININE 0.5 mg/dL (0.5-1.5)
[2021-01-17 11:13] LABS: ALBUMIN 4.3 g/dL (3.5-5.0); BILIRUBIN,TOTAL 1.1 mg/dL (0.2-1.0); TOTAL PROTEIN, SERUM 7.8 g/dL (6.0-8.3)
[2021-01-17 11:30] LABS: APPEARANCE,URINE Cloudy (CLEAR); BILIRUBIN,URINE Negative (NEGATIVE); COLOR,URINE Yellow (YELLOW); GLUCOSE, URINE (UA) >=1000 mg/dL (NEGATIVE); KETONES,URINE Negative (NEGATIVE); LEUKOCYTE ESTERASE ,URINE Small (NEGATIVE); NITRATE,URINE Negative (NEGATIVE); OCCULT BLOOD,URINE Negative (NEGATIVE); PROTEIN,URINE Trace mg/dL (NEGATIVE); UROBILINOGEN,URINE 0.2 mg/dL (0.2-1.0)
[2021-01-17 12:02] LABS: BACTERIA,URINE None Seen /HPF (None Seen); MUCUS,URINE Few LPF (None Seen); RBC,URINE 0-1 /HPF (0-1); SQUAMOUS EPITHELIAL CELL,UR 0-2 /HPF (0-2)
[2021-01-17] MEDS ORDERED: FENTANYL CITRATE PF 50 MCG/1 ML 2ML VIAL ONE (12:16)
[2021-01-17] MEDS ORDERED: ZOSYN 3.375GM+NS 50ML 50 ML IV ONE ×2 (14:10→21:53)
[2021-01-17 15:20] LABS: CHOLESTEROL 115 mg/dL (<200); CRP QUANTITATIVE < 2.00 mg/L (0.00-9.0); HDL CHOLESTEROL 34 mg/dL (29-71); LDL DIRECT 38 mg/dL (0-99); TRIGLYCERIDES 363 mg/dL (30-200)
[2021-01-17] MEDS ORDERED: KETOROLAC TROMETHAMINE 15MG/ML IV PRN (15:45)
[2021-01-17] MEDS: LACTATED RINGERS 1000ML 1,000 ML IV SCH (15:45)
[2021-01-17] MEDS: INSULIN HUMULIN R 100 UNIT/ML 3ML SQ SCH ×2 (15:45→21:45)
[2021-01-17] MEDS ORDERED: MORPHINE SULFATE 2 MG/ML 1ML SYG IVP PRN (15:45)
[2021-01-17] MEDS: ZOSYN 3.375GM+NS 50ML 50 ML IV SCH ×2 (15:45→23:45)
[2021-01-17 16:06] LABS: INR 1.04 (0.85-1.15); PROTHROMBIN TIME 11.3 SEC (9.6-11.6)
[2021-01-17 16:07] LABS: PARTIAL THROMBOPLASTIN TIME 32.2 SEC (26.3-35.5)
[2021-01-17] MEDS ORDERED: MORPHINE SULFATE 2 MG/ML 1ML SYG ONE ×2 (16:08→19:53)
[2021-01-17] MEDS ORDERED: LACTATED RINGERS 1000ML 1,000 ML IV ONE (16:08)
[2021-01-17] MEDS: FAMOTIDINE/PF 20 MG/2 ML VIAL IV SCH (21:00)
[2021-01-17] MEDS ORDERED: FAMOTIDINE/PF 20 MG/2 ML VIAL IV ONE (21:54)
[2021-01-17] MEDS ORDERED: SODIUM CHLORIDE 0.9% 50 ML IV ONE (21:55)
[2021-01-17] MEDS ORDERED: KETOROLAC TROMETHAMINE 15MG/ML ONE (22:04)
[2021-01-17 22:57] VITALS: BP 105/67
[2021-01-17] MEDS ORDERED: METF-444 PO (23:56)
[2021-01-17] MEDS ORDERED: LISI10TA24 PO (23:56)
[2021-01-17] MEDS ORDERED: INSU100I26 SQ (23:56)
[2021-01-18] MEDS ORDERED: HYDROMORPHONE HCL 0.5 MG/0.5 ML ML IVP PRN (01:15)
[2021-01-18] MEDS ORDERED: HYDROMORPHONE HCL 0.5 MG/0.5 ML ML ONE (01:16)
[2021-01-18] MEDS ORDERED: APIX5TAB PO (02:03)
[2021-01-18] MEDS ORDERED: GLIM2TAB30 PO (02:03)
[2021-01-18] MEDS ORDERED: GABA-533 PO (02:03)
[2021-01-18] MEDS ORDERED: FENO145T26 PO (02:03)
[2021-01-18] MEDS ORDERED: ATOR40TA71 PO (02:03)
[2021-01-18 03:59] VITALS: BP 98/54
[2021-01-18 04:59] LABS: BASOPHILS % (AUTO) 0.5 % (0.0-5.0); EOSINOPHILS % (AUTO) 2.9 % (0.0-8.0); HEMATOCRIT 37.3 % (42-54); LYMPHOCYTES % (AUTO) 40.3 % (21.0-51.0); MEAN CORPUSCULAR HEMOGLOBIN 31.7 pg (27.0-33.0); MEAN CORPUSCULAR HGB CONC 36.5 g/dL (32.0-36.0); MEAN CORPUSCULAR VOLUME 86.9 fL (79-99); NEUTROPHILS % (AUTO) 49.8 % (40.0-77.0); PLATELET COUNT (AUTO) 143 K/uL (130-400); RED BLOOD CELL COUNT(AUTO) 4.29 MIL/uL (4.50-6.20); RED CELL DISTRIBUTION WIDTH 13.3 % (11.0-15.5); WHITE BLOOD COUNT (AUTO) 6.2 K/uL (4.8-10.8)
[2021-01-18] MEDS: LACTATED RINGERS 1000ML 1,000 ML IV SCH (05:05)
[2021-01-18] MEDS: ZOSYN 3.375GM+NS 50ML 50 ML IV SCH ×2 (05:07→16:06)
[2021-01-18 05:19] LABS: ALBUMIN 3.5 g/dL (3.5-5.0); CREATININE 0.6 mg/dL (0.5-1.5); MAGNESIUM 1.6 mg/dL (1.80-2.40); POTASSIUM 3.5 mmol/L (3.5-5.1); TOTAL PROTEIN, SERUM 6.5 g/dL (6.0-8.3)
[2021-01-18] MEDS: INSULIN HUMULIN R 100 UNIT/ML 3ML SQ SCH ×2 (06:00→09:12)
[2021-01-18 08:00] VITALS: BP 96/58
[2021-01-18] MEDS: FAMOTIDINE/PF 20 MG/2 ML VIAL IV SCH (09:00)
[2021-01-18] MEDS ORDERED: MAGNESIUM 2GM PREMIX 50ML 50 ML IV SCH (09:45)
[2021-01-18] MEDS ORDERED: POTASSIUM CHLORIDE 20MEQ/100ML 100 ML IV PRN (09:45)
[2021-01-18 12:00] VITALS: BP 113/71
[2021-01-18 16:00] VITALS: BP 126/73
[2021-01-18] MEDS ORDERED: METFORMIN HCL 500 MG TABLET PO SCH (18:38)
[2021-01-18] MEDS ORDERED: AMOX-426 PO (18:43)
[2021-01-18 19:00] VITALS: BP 119/74
[2021-01-18] MEDS ORDERED: GABAPENTIN 300 MG CAPSULE PO SCH (21:00)
[2021-01-19] MEDS ORDERED: GLIMEPIRIDE 2 MG TABLET PO SCH (09:00)
[2021-01-19] MEDS ORDERED: ATORVASTATIN CALCIUM 40 MG TABLET PO SCH (09:00)
[2021-01-19] MEDS ORDERED: FENOFIBRATE NANOCRYSTALLIZED 145 MG TAB PO SCH (09:00)
== END 2021-01-18 19:30 | disposition home or self-care (01) ==
LOC: EDH 10:03 → EDHIP 15:34 → 3BH 21:45
PROVIDERS: ADMIT Internal Medicine; ATTEND Internal Medicine
DX: R10.33 Periumbilical pain (principal); Z20.822 Contact with and (suspected) exposure to COVID-19; R11.0 Nausea; E11.40 Type 2 diabetes mellitus with diabetic neuropathy, unspecified; I10 Essential (primary) hypertension; E78.5 Hyperlipidemia, unspecified; E78.00 Pure hypercholesterolemia, unspecified; Z86.718 Personal history of other venous thrombosis and embolism; E78.1 Pure hyperglyceridemia; Z79.01 Long term (current) use of anticoagulants; Z79.4 Long term (current) use of insulin; Z79.899 Other long term (current) drug therapy
CPT/HCPCS: 36415 ×2; 71045; 74176; 80053 ×2; 80061; 81001; 82009; 82150; 82948 ×4; 83690 ×2; 83735; 84145 ×2; 84484 ×2; 85025 ×2; 85610; 85730; 86140; 87426; 93005 ×2; 96365; 96366; 96367; 96375; 99285; G0378 ×27; J1170; J1885; J2543 ×5; J3010; J3475; J3490 ×2; J7120 ×2; U0003

== ENCOUNTER 2021-08-03 16:13 | Inpatient (IN) | payer OTHER ==
[~2021-08-03] VITALS: Ht 170.2 cm; Wt 77.0 kg
[~2021-08-03 16:13] MED LIST changes: +AMOX-426 PO; +GABA-533 PO; +METF-444 PO; -METF-446 PO
[2021-08-03] MEDS ORDERED: 0.9%NACL 1000ML 1,000 ML IV ONE (17:30)
[2021-08-03] MEDS ORDERED: ONDANSETRON 4MG INJ IVP ONE (17:30)
[2021-08-03] MEDS ORDERED: MORPHINE 2 MG SYG IVP ONE (17:30)
[2021-08-03] MEDS ORDERED: ONDANSETRON 4MG INJ ONE (17:41)
[2021-08-03] MEDS ORDERED: MORPHINE 2 MG SYG ONE (17:41)
[2021-08-03 17:52] LABS: APPEARANCE,URINE Clear (CLEAR); BILIRUBIN,URINE Negative (NEGATIVE); COLOR,URINE Yellow (YELLOW); GLUCOSE, URINE (UA) >=1000 mg/dL (NEGATIVE); KETONES,URINE Negative (NEGATIVE); LEUKOCYTE ESTERASE ,URINE Negative (NEGATIVE); NITRATE,URINE Negative (NEGATIVE); OCCULT BLOOD,URINE Negative (NEGATIVE); PROTEIN,URINE Negative (NEGATIVE); UROBILINOGEN,URINE 0.2 mg/dL (0.2-1.0)
[2021-08-03] MEDS ORDERED: INSULIN HUMULIN R 100 UNIT/ML 3ML SQ ONE (18:00)
[2021-08-03 18:01] LABS: BACTERIA,URINE Rare /HPF (None Seen); RBC,URINE 0-1 /HPF (0-1)
[2021-08-03 18:02] LABS: SQUAMOUS EPITHELIAL CELL,UR Rare /HPF (0-2)
[2021-08-03 18:04] LABS: BASOPHILS % (AUTO) 0.5 % (0.0-5.0); EOSINOPHILS % (AUTO) 4.4 % (0.0-8.0); HEMATOCRIT 37.5 % (42-54); LYMPHOCYTES % (AUTO) 33.3 % (21.0-51.0); MEAN CORPUSCULAR HEMOGLOBIN 32.8 pg (27.0-33.0); MEAN CORPUSCULAR HGB CONC 37.6 g/dL (32.0-36.0); MEAN CORPUSCULAR VOLUME 87.2 fL (79-99); NEUTROPHILS % (AUTO) 55.4 % (40.0-77.0); NUCLEATED RED BLOOD CELLS 0.4 % (0.0-0.19); PLATELET COUNT (AUTO) 203 K/uL (130-400); RED CELL DISTRIBUTION WIDTH 13.5 % (11.0-15.5); WHITE BLOOD COUNT (AUTO) 5.5 K/uL (4.8-10.8)
[2021-08-03 18:24] LABS: ALBUMIN 3.7 g/dL (3.5-5.0); BILIRUBIN,TOTAL 0.7 mg/dL (0.2-1.0); POTASSIUM 4.5 mmol/L (3.5-5.1); TOTAL PROTEIN, SERUM 7.5 g/dL (6.0-8.3)
[2021-08-03] MEDS ORDERED: DICYCLOMINE 20MG (10MG/ML) AMP IM STA (18:33)
[2021-08-03] MEDS ORDERED: ONDANSETRON ODT 4MG TAB SL ONE (19:00)
[2021-08-03] MEDS ORDERED: INSULIN HUMULIN R 100 UNIT/ML 3ML ONE (19:04)
[2021-08-03] MEDS ORDERED: HYDRALAZINE 20MG/ML VIAL IV PRN (19:30)
[2021-08-03] MEDS: FAMOTIDINE 20MG TAB PO SCH (20:17)
[2021-08-03] MEDS: GABAPENTIN 300 MG CAPSULE PO SCH (20:17)
[2021-08-03] MEDS: LACTATED RINGERS 1000ML 1,000 ML IV SCH (20:17)
[2021-08-03] MEDS: MORPHINE 4 MG SYG IV PRN (20:36)
[2021-08-03] MEDS ORDERED: APIXABAN 5 MG TABLET PO SCH (21:00)
[2021-08-03] MEDS ORDERED: INSULIN GLARGINE 100 UNITS/ML 10 ML VIAL SQ SCH (21:00)
[2021-08-03 21:39] LABS: BASE EXCESS,VENOUS BLOOD GAS -3.4 (-2.0-3.0); PCO2,VENOUS BLOOD GAS 41 (35-48); PH,VENOUS BLOOD GAS 7.348 (7.350-7.450)
[2021-08-03 22:05] VITALS: BP 124/71
[2021-08-04] MEDS: MORPHINE 4 MG SYG IV PRN (01:13)
[2021-08-04 03:09] VITALS: BP 111/71
[2021-08-04 04:06] LABS: BASOPHILS % (AUTO) 0.7 % (0.0-5.0); EOSINOPHILS % (AUTO) 5.7 % (0.0-8.0); HEMATOCRIT 35.5 % (42-54); LYMPHOCYTES % (AUTO) 42.1 % (21.0-51.0); MEAN CORPUSCULAR HEMOGLOBIN 36.6 pg (27.0-33.0); MEAN CORPUSCULAR VOLUME 87.2 fL (79-99); MONOCYTES % (AUTO) 9.4 % (3.0-13.0); NEUTROPHILS % (AUTO) 41.8 % (40.0-77.0); PLATELET COUNT (AUTO) 170 K/uL (130-400); RED BLOOD CELL COUNT(AUTO) 4.07 MIL/uL (4.50-6.20); RED CELL DISTRIBUTION WIDTH 13.2 % (11.0-15.5); WHITE BLOOD COUNT (AUTO) 5.8 K/uL (4.8-10.8)
[2021-08-04 04:51] LABS: MAGNESIUM 1.5 mg/dL (1.80-2.40); PHOSPHORUS 3.5 mg/dL (2.5-4.9); POTASSIUM 3.3 mmol/L (3.5-5.1)
[2021-08-04] MEDS: LACTATED RINGERS 1000ML 1,000 ML IV SCH (05:27)
[2021-08-04 05:52] LABS: CREATININE 0.5 mg/dL (0.5-1.5)
[2021-08-04 07:20] VITALS: BP 122/81
[2021-08-04] MEDS ORDERED: INSULIN HUMULIN R 100 UNIT/ML 3ML SQ SCH ×3 (07:30→12:00)
[2021-08-04 08:28] LABS: INR 0.96 (0.85-1.15); PARTIAL THROMBOPLASTIN TIME 29.5 SEC (26.3-35.5); PROTHROMBIN TIME 10.4 SEC (9.6-11.6)
[2021-08-04] MEDS: LISINOPRIL 10 MG TABLET PO SCH (08:48)
[2021-08-04] MEDS: GABAPENTIN 300 MG CAPSULE PO SCH ×3 (08:49→20:13)
[2021-08-04] MEDS: FAMOTIDINE 20MG TAB PO SCH ×2 (08:49→20:13)
[2021-08-04] MEDS: ATORVASTATIN 40 MG TABLET PO SCH (08:49)
[2021-08-04 09:11] LABS: POTASSIUM 3.5 mmol/L (3.5-5.1)
[2021-08-04] MEDS: KCL 20 MEQ ERTAB PO SCH (09:26)
[2021-08-04 09:28] LABS: CREATININE 0.7 mg/dL (0.5-1.5)
[2021-08-04] MEDS: 0.9%NACL 1000ML 1,000 ML IV SCH ×2 (09:45→18:33)
[2021-08-04] MEDS: MAGNESIUM 2GM PREMIX 50ML 50 ML IV PRN (10:44)
[2021-08-04 11:20] VITALS: BP 124/85
[2021-08-04 11:31] LABS: CREATININE 0.5 mg/dL (0.5-1.5); POTASSIUM 3.9 mmol/L (3.5-5.1)
[2021-08-04] MEDS: MORPHINE 2 MG SYG IV PRN ×3 (11:42→20:14)
[2021-08-04 15:20] VITALS: BP 119/72
[2021-08-04] MEDS: INSULIN HUMULIN R 100 UNIT/ML 3ML SQ SCH ×2 (16:24→20:16)
[2021-08-04 20:09] VITALS: BP 117/70
[2021-08-04] MEDS ORDERED: INSULIN GLARGINE 100 UNITS/ML 10 ML VIAL SQ SCH (21:00)
[2021-08-04 23:22] VITALS: BP 94/52
[2021-08-05] MEDS: MORPHINE 2 MG SYG IV PRN ×2 (01:36→07:44)
[2021-08-05] MEDS: 0.9%NACL 1000ML 1,000 ML IV SCH ×2 (01:36→08:45)
[2021-08-05 03:11] VITALS: BP 103/62
[2021-08-05] MEDS: MAGNESIUM 2GM PREMIX 50ML 50 ML IV PRN (04:44)
[2021-08-05] MEDS: INSULIN HUMULIN R 100 UNIT/ML 3ML SQ SCH ×7 (05:51→16:51)
[2021-08-05 06:51] LABS: BASOPHILS % (AUTO) 0.9 % (0.0-5.0); EOSINOPHILS % (AUTO) 5.9 % (0.0-8.0); HEMATOCRIT 36.9 % (42-54); LYMPHOCYTES % (AUTO) 39.3 % (21.0-51.0); MEAN CORPUSCULAR HEMOGLOBIN 32.8 pg (27.0-33.0); MEAN CORPUSCULAR HGB CONC 36.6 g/dL (32.0-36.0); MEAN CORPUSCULAR VOLUME 89.8 fL (79-99); MONOCYTES % (AUTO) 7.2 % (3.0-13.0); NEUTROPHILS % (AUTO) 46.3 % (40.0-77.0); PLATELET COUNT (AUTO) 135 K/uL (130-400); RED BLOOD CELL COUNT(AUTO) 4.11 MIL/uL (4.50-6.20); RED CELL DISTRIBUTION WIDTH 14.1 % (11.0-15.5); WHITE BLOOD COUNT (AUTO) 4.6 K/uL (4.8-10.8)
[2021-08-05 06:59] LABS: CREATININE 0.5 mg/dL (0.5-1.5); POTASSIUM 3.8 mmol/L (3.5-5.1)
[2021-08-05 07:20] VITALS: BP 112/67
[2021-08-05] MEDS: KCL 20 MEQ ERTAB PO SCH (07:47)
[2021-08-05] MEDS: FAMOTIDINE 20MG TAB PO SCH (08:40)
[2021-08-05] MEDS: GABAPENTIN 300 MG CAPSULE PO SCH ×2 (08:41→14:29)
[2021-08-05] MEDS: ATORVASTATIN 40 MG TABLET PO SCH (08:45)
[2021-08-05] MEDS ORDERED: ACETAMINOPHEN WITH CODEINE 1 TAB TAB PO PRN (09:30)
[2021-08-05 11:20] VITALS: BP 117/81
[2021-08-05] MEDS: LISINOPRIL 10 MG TABLET PO SCH (11:55)
[2021-08-05 16:20] VITALS: BP 102/59
[2021-08-05] MEDS ORDERED: GLIM4TAB36 PO (16:57)
== END 2021-08-05 18:35 | disposition home or self-care (01) | DRG 639 ==
LOC: EDH 16:13 → OBSVTOIN 19:19 → EDHIP 19:19 → 3AH 21:20 → UNDODISIN 08-04 17:57
PROVIDERS: ADMIT Internal Medicine; ATTEND Internal Medicine
DX: E11.10 Type 2 diabetes mellitus with ketoacidosis without coma (principal); E78.5 Hyperlipidemia, unspecified; I10 Essential (primary) hypertension; E78.00 Pure hypercholesterolemia, unspecified; E11.40 Type 2 diabetes mellitus with diabetic neuropathy, unspecified; E78.1 Pure hyperglyceridemia; Z79.4 Long term (current) use of insulin; Z79.899 Other long term (current) drug therapy; Z86.718 Personal history of other venous thrombosis and embolism; Z90.49 Acquired absence of other specified parts of digestive tract; Z83.3 Family history of diabetes mellitus; Z82.49 Family history of ischemic heart disease and other diseases of the circulatory system
CPT/HCPCS: 36415; 36600; 74176; 80048; 80053; 80061; 81001; 82010; 82803; 82948; 83036; 83605; 83690; 83735; 84100; 84478; 85025; 85610; 85730; G0378; J0500; J1815; J2270; J2405; J3475; J7030; J7120

== ENCOUNTER 2021-08-19 01:42 | Emergency (ER) | payer OTHER ==
[~2021-08-19] VITALS: Ht 170.2 cm; Wt 74.8 kg
[~2021-08-19 01:42] MED LIST changes: -AMOX-426 PO; -APIX5TAB PO; -GLIM2TAB30 PO; +GLIM4TAB36 PO
[2021-08-19 01:46] VITALS: BP 145/86
[2021-08-19] MEDS ORDERED: IBUPROFEN 600 MG TABLET PO ONE (02:30)
[2021-08-19] MEDS ORDERED: CEFTRIAXONE 1G VIAL IM ONE (02:30)
[2021-08-19] MEDS ORDERED: HYDROCODONE/ACETAMINOPHEN 5/325 MG TAB PO ONE (02:30)
[2021-08-19] MEDS ORDERED: ACETAMINOPHEN 500 MG TABLET PO ONE (02:30)
[2021-08-19] MEDS ORDERED: CLINDAMYCIN 150 MG CAP PO ONE (02:30)
[2021-08-19] MEDS ORDERED: CEPH500B PO (02:35)
[2021-08-19] MEDS ORDERED: MELO7.5T12 PO (02:35)
[2021-08-19] MEDS ORDERED: CLIN-141 PO (02:35)
[2021-08-19] MEDS ORDERED: LIDOCAINE HCL-MPF 1% 2ML VIAL ONE (02:43)
== END 2021-08-19 03:22 | disposition home or self-care (01) ==
LOC: EDH 01:42
DX: L02.31 Cutaneous abscess of buttock (principal); L73.9 Follicular disorder, unspecified; E11.9 Type 2 diabetes mellitus without complications; E78.00 Pure hypercholesterolemia, unspecified; I10 Essential (primary) hypertension; Z79.1 Long term (current) use of non-steroidal anti-inflammatories (NSAID); Z79.4 Long term (current) use of insulin; Z79.899 Other long term (current) drug therapy
CPT/HCPCS: 96372; 99284; J0696; J3490

== ENCOUNTER 2021-09-03 21:01 | Emergency (ER) | payer OTHER ==
[~2021-09-03] VITALS: Ht 170.2 cm; Wt 75.7 kg
[~2021-09-03 21:01] MED LIST changes: +CEPH500B PO; +CLIN-141 PO; +MELO7.5T12 PO
[2021-09-03 21:02] VITALS: BP 159/65
== END 2021-09-03 23:30 | disposition left against medical advice (07) ==
LOC: EDH 21:01
DX: R10.12 Left upper quadrant pain (principal); Z53.21 Procedure and treatment not carried out due to patient leaving prior to being seen by health care provider

== ENCOUNTER 2022-08-28 23:15 | Emergency (ER) | payer OTHER ==
[~2022-08-28] VITALS: Ht 170.2 cm; Wt 81.2 kg
[2022-08-28 23:43] LABS: EOSINOPHILS % (AUTO) 5.5 % (0.0-8.0); HEMATOCRIT 46.7 % (42-54); LYMPHOCYTES % (AUTO) 39.6 % (21.0-51.0); MEAN CORPUSCULAR HEMOGLOBIN 32.8 pg (27.0-33.0); MEAN CORPUSCULAR HGB CONC 37.7 g/dL (32.0-36.0); MEAN CORPUSCULAR VOLUME 87.1 fL (79-99); MONOCYTES % (AUTO) 6.6 % (3.0-13.0); PLATELET COUNT (AUTO) 146 K/uL (130-400); RED BLOOD CELL COUNT(AUTO) 5.36 MIL/uL (4.50-6.20); RED CELL DISTRIBUTION WIDTH 13.1 % (11.0-15.5); WHITE BLOOD COUNT (AUTO) 5.8 K/uL (4.8-10.8)
[2022-08-29 00:19] LABS: ALBUMIN 3.9 g/dL (3.5-5.0); CREATININE 0.5 mg/dL (0.5-1.5); POTASSIUM 3.5 mmol/L (3.5-5.1)
[2022-08-29 00:28] LABS: MAGNESIUM 1.6 mg/dL (1.80-2.40)
[2022-08-29 00:39] LABS: TOTAL PROTEIN, SERUM 8.1 g/dL (6.0-8.3)
[2022-08-29] MEDS ORDERED: GABAPENTIN 300 MG CAPSULE PO STA (01:32)
[2022-08-29] MEDS ORDERED: GABA300C PO (01:41)
[2022-08-29] MEDS ORDERED: IBUP-1493 PO (01:41)
[2022-08-29] MEDS ORDERED: DULO60CA45 PO (01:41)
[2022-08-29] MEDS ORDERED: OXYCODONE/ACETAMIN 5/325MG TAB PO ONE (02:00)
[2022-08-29] MEDS ORDERED: MAGNESIUM 2GM PREMIX 50ML 50 ML IV SCH (02:00)
[2022-08-29] MEDS ORDERED: KETOROLAC 30MG VIAL (30MG/ML) IVP ONE (02:00)
[2022-08-29 02:39] VITALS: BP 138/75
== END 2022-08-29 03:01 | disposition home or self-care (01) ==
LOC: EDH 23:15
DX: E11.40 Type 2 diabetes mellitus with diabetic neuropathy, unspecified (principal); E83.42 Hypomagnesemia; R10.13 Epigastric pain; I10 Essential (primary) hypertension; E78.00 Pure hypercholesterolemia, unspecified; Z90.49 Acquired absence of other specified parts of digestive tract; Z79.2 Long term (current) use of antibiotics
CPT/HCPCS: 99284; 84478; 83735; 84484; 80053; 83690; 85025; 36415; 93005; 96365; 96366; 96375; J3475; J1885

== ENCOUNTER 2024-09-05 21:19 | Emergency (ER) | payer OTHER ==
[~2024-09-05] VITALS: Ht 175.3 cm; Wt 77.1 kg
[~2024-09-05 21:19] MED LIST changes: -CEPH500B PO; -CLIN-141 PO; +DULO60CA45 PO; -GABA-533 PO; +GABA-534 PO; +GABA300C PO; +IBUP-1493 PO; -MELO7.5T12 PO
[2024-09-05 21:20] VITALS: BP 167/100; PULSE 127; RESP 20; TEMP 97.7
[2024-09-05 22:11] LABS: CREATINE KINASE, TOTAL 118 U/L (21-232)
--- NOTE | 2024-09-06 00:36 | NUR ---
PT SITTING IN LOBBY BY , ON PHONE. NO ACUTE DISTRESS NOTED. GOOD CHEST RISE AND FALL OBSERVED
--- NOTE | 2024-09-06 00:42 | NUR ---
PT CALLED TO RECHECK V/S. PER SECURITY PT LEFT WITH NO REASON ON LEAVING.
--- NOTE | 2024-09-06 08:38 | EKG ---
[facility] Test Date: 2024-09-05 Test Time: 21:22:58 Pat Name: JOSEPH ARAIZA Department: ED Room: Gender: Yard Foreman: [id number] : 1990 Requested By: ALETA GOLDEN Order Number: [id number] Reading MD: Blas Lemons Measurements Intervals [place] Rate: 122 P: 38 MD: 135 QRS: 69 QRSD: 83 T: 17 QT: 308 QTc: 439 Interpretive Statements Sinus tachycardia Compared to ECG 08/28/2022 23:34:24 Sinus rhythm no longer present Electronically Signed On 09-06-2024 21:23:11 SUPERVISOR GROWER by Blas Lemons Please click the below link to view image of tracing.
== END 2024-09-06 00:43 | disposition left against medical advice (07) ==
LOC: EDH 21:19
DX: R00.2 Palpitations (principal); Z53.21 Procedure and treatment not carried out due to patient leaving prior to being seen by health care provider
CPT/HCPCS: 36415; 82550; 84484; 93005

== ENCOUNTER 2025-05-10 22:42 | Emergency (ER) | payer OTHER ==
[~2025-05-10] VITALS: Ht 175.3 cm; Wt 73.5 kg
[2025-05-10] MEDS: 0.9%NACL 1000ML 1,000 ML IV ONE (23:00)
[2025-05-10 23:31] LABS: IMMATURE GRANULOCYTE ABSOLUTE 0.03 K/uL (0-1); NUCLEATED RED BLOOD CELLS 0.0 % (0.0-0.19); PLATELET COUNT (AUTO) 203 K/uL (130-400); RED BLOOD CELL COUNT(AUTO) 5.24 MIL/uL (4.50-6.20); RED CELL DISTRIBUTION WIDTH 12.2 % (11.0-15.5); WHITE BLOOD COUNT (AUTO) 7.9 K/uL (4.8-10.8)
[2025-05-10 23:48] LABS: CREATININE 0.6 mg/dL (0.5-1.3); GLOMERULAR FILTR. RATE CALC 129.0 mL/min (>90); GLUCOSE,RANDOM 229.0 mg/dL (70-105); SODIUM SERUM 138.0 mmol/L (136-145); UREA NITROGEN, BLOOD 17.0 mg/dL (7-18)
[2025-05-10 23:50] LABS: ASPARTATE AMINOTRANSFERASE 21.0 U/L (10-37); TOTAL PROTEIN, SERUM 8.2 g/dL (6.0-8.3)
--- NOTE | 2025-05-11 00:47 | ERN ---
General Chief Complaint: Abdominal Pain Stated Complaint: C/O ABD PAIN RADIATING TO BACK Time Seen by MD: 22:48 Source: patient History of Present Illness Initial Comments Patient is a 34-year-old male coming in complaining of epigastric discomfort. P atient states he has a history of pancreatitis. He states that the stomach started hurting earlier yesterday. Allergies: Coded Allergies: No Known Allergies (Verified Allergy, Unknown, 08/04/18) Home Meds Active Scripts Ibuprofen (Motrin/Advil) 800 Mg Tab, 800 MG PO TID, #30 TAB Prov:DILIP BRUNO MD 08/29/22 Duloxetine HCl (Cymbalta) 60 Mg Capsule.dr, 60 MG PO DAILY, #30 CAP Prov:DILIP BRUNO MD 08/29/22 Gabapentin (Neurontin) 300 Mg Capsule, 300 MG PO TID, #90 CAP Prov:DILIP BRUNO MD 08/29/22 Glimepiride (Glimepiride) 4 Mg Tablet, 4 MG PO DAILY for 30 Days, #30 TAB 0 Refills Prov:LESLY ALLEN MD 08/05/21 Reported Medications Gabapentin (Gabapentin) 400 Mg Capsule, 300 MG PO TID, CAP 01/18/21 Fenofibrate Nanocrystallized (Fenofibrate) 145 Mg Tablet, 145 MG PO DAILY, TAB 01/18/21 Atorvastatin Calcium (Atorvastatin Calcium) 40 Mg Tablet, 40 MG PO DAILY, TAB 01/18/21 Lisinopril (Lisinopril) 10 Mg Tablet, 10 MG PO DAILY, TAB 01/17/21 Metformin HCl (Metformin HCl) 500 Mg Tablet, 500 MG PO BID, TAB 01/17/21 Insulin Glargine,Hum.rec.anlog (Basaglar Kwikpen U-100) 100 Unit/1 Ml Insuln.pen, 20 UNIT SQ HS, SYRINGE 01/17/21 Past Medical History Past Medical History: Diabetes-Type II, High Cholesterol, Hypertension, Pancreatitis Medical History Other: CHRONIC PANCREATITIS; NEUROPATHY Past Surgical History: Cholecystectomy Family History Family History: Negative Social History Social History: Negative Results Laboratory and Microbiology Lab and Micro Result Laboratory Tests Test 05/10/25 23:19 White Blood Count 7.9 K/uL (4.8-10.8) Red Blood Count 5.24 MIL/uL (4.50-6.20) Hemoglobin 16.8 g/dL (14.0-18.0) Hematocrit 46.2 % (42-54) Mean Corpuscular Volume 88.2 fL (79-99) Mean Corpuscular Hemoglobin 32.1 pg (27.0-33.0) Mean Corpuscular Hemoglobin Concent 36.4 g/dL (32.0-36.0) H Red Cell Distribution Width 12.2 % (11.0-15.5) Platelet Count 203 K/uL (130-400) Mean Platelet Volume 11.9 fL (7.5-10.5) H Immature Granulocyte % (Auto) 0.4 % (0-1) Neutrophils (%) (Auto) 54.2 % (40.0-77.0) Lymphocytes (%) (Auto) 35.8 % (21.0-51.0) Monocytes (%) (Auto) 5.9 % (3.0-13.0) Eosinophils (%) (Auto) 3.2 % (0.0-8.0) Basophils (%) (Auto) 0.5 % (0.0-5.0) Neutrophils # (Auto) 4.3 K/uL (1.8-7.7) Lymphocytes # (Auto) 2.8 K/uL (1.0-4.8) Monocytes # (Auto) 0.5 K/uL (0.1-1.0) Eosinophils # (Auto) 0.25 K/uL (0.00-0.70) Basophils # (Auto) 0.04 K/uL (0.00-0.20) Absolute Immature Granulocyte (auto 0.03 K/uL (0-1) Nucleated Red Blood Cells 0.0 % (0.0-0.19) Red Blood Cell Morphology See comments Sodium Level 138 mmol/L (136-145) Potassium Level 3.9 mmol/L (3.5-5.1) Chloride Level 98 mmol/L (101-111) L Carbon Dioxide Level 32 mmol/L (21-32) Blood Urea Nitrogen 17 mg/dL (7-18) Creatinine 0.6 mg/dL (0.5-1.3) Glomerular Filtration Rate Calc 129 mL/min (>90) Random Glucose 229 mg/dL (70-105) H Total Calcium 9.9 mg/dL (8.5-10.1) Total Bilirubin 3.3 mg/dL (0.2-1.0) H Aspartate Amino Transf (AST/SGOT) 21 U/L (10-37) Alanine Aminotransferase (ALT/SGPT) 37 U/L (12-78) Alkaline Phosphatase 95 U/L (50-136) Total Protein 8.2 g/dL (6.0-8.3) Albumin 4.4 g/dL (3.5-5.0) Triglycerides Level 274 mg/dL (30-200) H Lipase 85 U/L (16-77) H Labs Reviewed?: Yes MDM MDM: Differential diagnosis: History of pancreatitis, gastritis, marijuana usage, anxiety Rationale: Tests considered and ordered secondary to shared decision making include: Previous outside records reviewed: Old ER visits. Risk of complication and/or morbidity or mortality of patient management: None Medications-Per medication reconciliation Need for hospitalization: Patient does not meet criteria for hospitalization. Need for emergency major/minor surgery: No Patient is a 34-year-old male coming in to be evaluated for multiple complaints. Per patient he does has a history of pancreatitis. Laboratory workup with a normal limits long with the as he states he has a history of anxiety. Patient will be discharged in stable condition with a diagnosis of gastritis and anxiety. Medication will be provided for symptomatic relief. Did advised him appropriate follow up with PCP for long-term management. ED Course Orders Procedure Category Date Status Time Cbc With Differential LAB 05/10/25 Complete 22:59 Comprehensive LAB 05/10/25 Complete Metabolic Panel 22:59 Urinalysis Profile LAB 05/10/25 Logged 22:59 0.9%Nacl 1000ml (Ns PHA 05/10/25 Complete 1000ml) 23:00 Pantoprazole 40mg Inj PHA 05/10/25 Complete (Protonix 40mg Inj 23:00 Lipase LAB 05/10/25 Complete 22:59 Drug Screen Urine LAB 05/10/25 Logged 22:59 Triglycerides LAB 05/10/25 Complete 23:57 Gi Cocktail(Viscous PHA 05/11/25 Transmitted [place]ido 2%) 01:30 Gi Cocktail (Maalox PHA 05/11/25 Transmitted 30ml) 01:30 Current Medications Medications (Trade) Dose Ordered Sig/Shelley Route PRN Reason Start Time Stop Time Status Last Admin Dose Admin Pantoprazole Sodium (PROTonix 40MG INJ) 40 mg ONCE ONCE IVP 05/10/25 23:00 05/10/25 23:17 DC Sodium Chloride 1,000 ml @ 0 mls/hr ONCE ONCE IV 05/10/25 23:00 05/10/25 23:17 DC Vital Signs Date Time Temp Pulse Resp B/P (MAP) Pulse Ox O2 Delivery O2 Flow Rate FiO2 05/10/25 22:44 97.7 123 20 127/88 98 Room Air DX & DISP Disposition: Discharge Departure Impression: Primary Impression: Gastritis Additional Impressions: Anxiety, Marijuana smoker Condition: Stable Scripts Buspirone HCl (Buspar) 15 Mg Tab 1 TAB PO DAILY for 10 Days, #10 TAB 0 Refills Prov: SLICK CHAVEZ MD 05/11/25 Additional Instructions: FOLLOW-UP WITH PRIMARY CARE PROVIDER IN 1 TO 2 DAYS. TAKE MEDICATIONS DIRECTED HERE IN THE EMERGENCY ROOM. OKAY TO CONTINUE HOME MEDICATIONS UNLESS OTHERWISE DISCUSSED DURING YOUR VISIT IN THE EMERGENCY ROOM TODAY. RETURN TO YOUR NEAREST EMERGENCY ROOM IF SYMPTOMS WORSEN OR IF THERE IS NO IMPROVEMENT. CALL 911 IF YOU NEED IMMEDIATE ASSISTANCE. TAKE TYLENOL [id number] NEEDED AND IF NO CONTRAINDICATIONS ARE PRESENT. INCREASE ORAL HYDRATION. A WOUND CULTURE OR URINE CULTURE WAS ORDERED HERE IN THE EMERGENCY ROOM DEPARTMENT PLEASE FOLLOW-UP WITH PRIMARY CARE PROVIDER AND ADVISE THEM TO GET REPORTS FROM OUR FACILITY. IF YOU HAD ANY AILIN WRAP/SPLINTS THAT WERE APPLIED HERE, PLEASE DO NOT REMOVE THEM UNTIL YOU SEE YOUR PRIMARY CARE OR SPECIALTY. Referrals: Referrals: SELF,REFERRAL (PCP) YUE FRANCO MD Time of Disposition: 01:04 SLICK CHAVEZ MD May 11, 2025 00:47
--- NOTE | 2025-05-11 00:53 | NUR ---
PT CARE ASSUMED AT THIS TIME
[2025-05-11] MEDS ORDERED: BUSP15 PO (01:05)
[2025-05-11] MEDS: LIDOCAINE HCL 2% VISCOUS 15 ML UDCUP PO ONE (01:19)
[2025-05-11] MEDS: MAG/ALUM/SIMETH 30 ML UDCUP PO ONE (01:19)
--- NOTE | 2025-05-11 01:19 | NUR ---
PER ED MD NO NEED FOR IV PLACEMENT. NO ADMINISTRATION OF ORDERED IV MEDICATIONS. GI COCKTAIL IS TO BE ADMINISTERED. PT CLEARED FOR DISCHARGE.
[2025-05-11 02:02] VITALS: BP 119/85; PULSE 86; RESP 17; TEMP 98.5; O2SAT 98
== END 2025-05-11 02:04 | disposition home or self-care (01) ==
LOC: EDH 22:42
DX: K29.70 Gastritis, unspecified, without bleeding (principal); F41.9 Anxiety disorder, unspecified; F12.90 Cannabis use, unspecified, uncomplicated; E11.40 Type 2 diabetes mellitus with diabetic neuropathy, unspecified; E78.00 Pure hypercholesterolemia, unspecified; I10 Essential (primary) hypertension; Z79.1 Long term (current) use of non-steroidal anti-inflammatories (NSAID); Z79.84 Long term (current) use of oral hypoglycemic drugs; Z79.899 Other long term (current) drug therapy; Z87.19 Personal history of other diseases of the digestive system; Z90.49 Acquired absence of other specified parts of digestive tract
CPT/HCPCS: 36415; 80053; 83690; 84478; 85025; 99283

== ENCOUNTER → 2025-08-31 | Outpatient (CLI) | payer BC ==
[~2025-08-31] MED LIST changes: +BUSP15 PO; +GADOTERATE MEGLUMINE 10 MMOL/20 ML VIAL IV ONE
--- NOTE | 2025-08-31 22:32 | HMCIMG ---
STUDY MR abdomen with and without intravenous contrast CLINICAL HISTORY K86.9 disease of pancreas, unspecified TECHNIQUE Multisequence, multiplanar magnetic resonance images of the abdomen were obtained before and after intravenous contrast administration with dynamic postcontrast imaging; approximately 16 cc of gadolinium-based contrast was administered COMPARISON CT abdomen and pelvis without contrast 08/03/2021 FINDINGS Lower thorax No pleural effusion is identified at the lung bases. Liver and biliary tree The liver is enlarged, measuring up to approximately 18 cm in craniocaudal span, with diffuse loss of signal on opposed-phase imaging consistent with hepatic steatosis. No focal hepatic mass or suspicious focal lesion is identified. The common bile duct is mildly dilated, measuring up to approximately 9 mm, with smooth tapering toward the ampullary region and no intraluminal filling defect or abrupt cut-off to suggest choledocholithiasis or obstructing mass. No intrahepatic biliary ductal dilatation is seen. Gallbladder No gallstones are demonstrated. Gallbladder wall thickness is within normal limits with no pericholecystic fluid. Pancreas The pancreas is diffusely atrophic, most pronounced in the distal body and tail, with associated dilatation of the main pancreatic duct in the distal body and tail. The pancreatic head and proximal duct appear relatively preserved without discrete mass on this non-MRCP examination. No peripancreatic fluid collection or inflammatory stranding is identified. Overall appearance is compatible with chronic pancreatitis in the appropriate clinical setting. Spleen and varices Spleen size is within normal limits. Varices are present at the splenic hilum and beneath the superior pole of the spleen, compatible with portal hypertension. No focal splenic lesion is seen. Adrenals and kidneys The adrenal glands are normal in size and morphology without focal lesion. The kidneys are normal in size and enhancement without hydronephrosis or solid renal mass. Bowel and mesentery Limited evaluation of the stomach and bowel loops demonstrates no evidence of bowel wall thickening, obstruction, or inflammatory mass. There is fecal impaction in the large bowel. No free intraperitoneal fluid or loculated collection is identified. Vasculature No abdominal aortic aneurysm is seen. The visualized portal and splenic veins are patent, with perisplenic varices as described. Other No pathologic intra-abdominal lymphadenopathy is identified. IMPRESSION * Hepatomegaly with diffuse hepatic steatosis and perisplenic varices, compatible with portal hypertension in the appropriate clinical context. * Mild dilation of the common bile duct to approximately 9 mm with smooth distal tapering and no intrahepatic ductal dilation, without definite obstructing lesion identified. * Dilated main pancreatic duct in the distal body and tail with associated distal pancreatic atrophy, concordant with prior CT and compatible with chronic pancreatitis in the appropriate clinical setting. * Fecal impaction of the large bowel without imaging evidence of mechanical obstruction or acute inflammatory bowel process. /[place]
== END | disposition home or self-care (01) ==
LOC: RAH 12:39
PROVIDERS: ATTEND Family Medicine
DX: K76.0 Fatty (change of) liver, not elsewhere classified (principal); R16.0 Hepatomegaly, not elsewhere classified; K86.9 Disease of pancreas, unspecified; K83.8 Other specified diseases of biliary tract; K86.89 Other specified diseases of pancreas; K56.41 Fecal impaction
CPT/HCPCS: 74183; A9575